=== PATIENT | female | born 1990 | race Caucasian/White ===

== ENCOUNTER → 2017-06-16 16:11 | Outpatient (CLI) | payer OTHER, SELFPAY ==
--- NOTE | 2017-06-16 16:20 | MRI_ITS ---
STUDY: MRI BRAIN WITH AND WITHOUT CONTRAST REASON FOR EXAM: Female, 26 years old. Headaches increasing in frequency TECHNIQUE: Standardized multiplanar fat and water weighted pulse sequences were obtained. 5ml ml of Gadavist contrast material was administered intravenously for the contrast portion of the examination. COMPARISON: None. FINDINGS: Normal size of the ventricles and extra-axial spaces for the patient's age. Normal white matter tracts of the supratentorial brain. Normal bilateral basal ganglia. Normal thalami. There is no extra-axial fluid accumulation. Normal flow voids within the major intracranial circulation suggesting patency by spin echo criteria. Normal venous enhancement. There is no enhancing intra-axial or extra-axial abnormality. Normal sella turcica, pituitary gland, infundibular stalk, optic chiasm and hypothalamus. Normal tectal plate and pineal gland. Normal midbrain, katarina and medulla. Normal cerebellum. Normal basal cisterns. Normal bilateral temporal bones. Normal bilateral internal auditory canals. No demonstrated orbital abnormality, within the constraints of a routine brain study. Mucous retention cyst or polyp in the right maxillary sinus.. Normal calvarium and skull base. Normal visualized soft tissue structures. Normal visualized upper cervical spine. MRI/Brain W/WO Contrast IMPRESSION: Normal unenhanced and enhanced MRI of the brain. Right maxillary sinusitis Electronically Signed: Naveen Valadez MD at 17:49 EST , Service support ,
== END ==
PROVIDERS: Family Provider Preventive Medicine Occupational Medicine; PCP Preventive Medicine Occupational Medicine; Visit Provider Preventive Medicine Occupational Medicine
DX: G43.109 Migraine with aura, not intractable, without status migrainosus (principal)
CPT/HCPCS: 70553; A9585

== ENCOUNTER → 2017-08-30 16:22 | Outpatient (CLI) | payer OTHER, SELFPAY ==
[2017-08-30 18:51] LABS: Chlamydia Trachomatis by PCR Negative (Negative); Neisserai gonorrhoeae by PCR Negative (Negative); Probe Check PASS; Sample Adequacy Control PASS; Specimen Processing Control PASS
== END ==
PROVIDERS: Visit Provider Obstetrics & Gynecology
DX: Z34.81 Encounter for supervision of other normal pregnancy, first trimester (principal); Z11.3 Encounter for screening for infections with a predominantly sexual mode of transmission
CPT/HCPCS: 87491; 87591

== ENCOUNTER → 2017-09-15 14:00 | Outpatient (CLI) | payer OTHER, SELFPAY ==
--- NOTE | 2017-09-15 14:00 | DT_ITS ---
This patient was seen during an EMR downtime September 13, 2017 - September 20, 2017. This patient may have a combination of paper and electronic documentation or all paper documentation. All documentation is viewable within the e-chart portion of [employer] for each patient visit.
[2017-09-19 10:01] LABS: Thyroid Stim Hormone (TSH) 1.19 uIU/mL (0.358-3.74)
[2017-09-19 10:21] LABS: Hemoglobin 13.3 g/dl (12.0-15.0); Mean Corp Hgb Conc 34.1 g/gl (32-36); Mean Corpuscular Hgb 30.5 pg (27.0-32.0); Mean Corpuscular Volume 89.4 fL (81-99); Mean Platelet Vol. 10.5 fl (6.2-12.0); Platelet Count 283 K/mm3 (150-450); RBC Distribution Width CV 12.4 % (11.6-14.6); RBC Distribution Width SD 40.4 fl (35.1-43.9); Red Blood Count 4.36 M/mm3 (4.2-5.4); Scan Indicated on CBC? Y/N NO; White Blood Count 8.8 K/mm3 (4.4-11.0)
[2017-09-19 13:45] LABS: Prenatal RPR NONREACTIVE (NONREACTIVE)
[2017-09-20 14:10] LABS: HIV - WCH Nonreactive (Nonreactive)
[2017-09-20 15:57] LABS: Rubella IgG 204.8 IU/mL
== END ==
PROVIDERS: Family Provider Preventive Medicine Occupational Medicine; PCP Preventive Medicine Occupational Medicine; Visit Provider Obstetrics & Gynecology
DX: Z34.81 Encounter for supervision of other normal pregnancy, first trimester (principal)
CPT/HCPCS: 36415; 84443; 85027; 86703; 86762; 86803; 87340

== ENCOUNTER → 2018-02-02 09:37 | Outpatient (CLI) | payer OTHER, SELFPAY ==
[2018-02-02 13:40] LABS: Hematocrit 31.6 % (37-47); Hemoglobin 10.2 g/dl (12.0-15.0); Mean Corp Hgb Conc 32.3 g/gl (32-36); Mean Corpuscular Hgb 29.5 pg (27.0-32.0); Mean Corpuscular Volume 91.3 fL (81-99); Mean Platelet Vol. 10.3 fl (6.2-12.0); Platelet Count 270 K/mm3 (150-450); RBC Distribution Width CV 13.1 % (11.6-14.6); Red Blood Count 3.46 M/mm3 (4.2-5.4); White Blood Count 8.4 K/mm3 (4.4-11.0)
[2018-02-02 13:41] LABS: Scan Indicated on CBC? Y/N NO
[2018-02-02 13:52] LABS: Glucose Challenge Gest 1H 50g 104 mg/dL (70-140)
== END ==
PROVIDERS: Visit Provider Obstetrics & Gynecology
DX: Z34.83 Encounter for supervision of other normal pregnancy, third trimester (principal)
CPT/HCPCS: 36415; 82950; 85027

== ENCOUNTER → 2018-03-28 16:56 | Outpatient (CLI) | payer OTHER, SELFPAY ==
--- OUTSIDE RECORDS SUMMARY | 2018-06-30 09:35 | XMS RPT_ITS ---
:1990 Author Organization [place] Support Name Relationship Address Phone [employer] Unavailable [address] + [address] [place] [address] [employer] Unavailable [address] + [address] [place] [address] JOHN EM Unavailable [address] + [place] [address] [employer] Unavailable [address] + [address] [place] [address] [employer] Unavailable [address] + [address] [place] [address] JOHN EM Unavailable [address] + [place] [address] [employer] Unavailable [address] + [address] [place] [address] KRISTYN SAUNDERS Unavailable [address] + [place] [address] JOHN EM Unavailable [address] + [place] [address] [employer] Unavailable [address] + [address] [place] [address] KRISTYN SAUNDERS Unavailable [address] + [place] [address] JOHN EM Unavailable [address] + [place] [address] [facility] Unavailable [address] + [address] [place] [address] MADDING, KRISTYN Unavailable [address] + [place] [address] NAUMOFF, EM Unavailable [address] + [place] [address] [facility] Unavailable [address] + [address] [place] [address] MADDING, KRISTYN Unavailable [address] + [place] [address] NAUMOFF, EM Unavailable [address] + [place] [address] [facility] Unavailable [address] + [address] [place] [address] MADDING, KRISTYN Unavailable [address] + [place] [address] NAUMOFF, EM Unavailable [address] + [place] [address] [facility] Unavailable [address] + [address] [place] [address] MADDING, KRISTYN Unavailable [address] + [place] [address] NAUMOFF, EM Unavailable [address] + [place] [address] NAUMOFF, TIM Unavailable Unavailable + NAUMOFF, TIM Unavailable Unavailable + NAUMOFF, JUDY Unavailable [address] + [place] [address] Care Team Providers Name Role Phone MAKI CHAMBERS Attending Unavailable MAKI CHAMBERS Primary Care Unavailable Jocelin Guevara Attending Unavailable Jocelin Guevara Attending Unavailable Jocelin Guevara Referring Unavailable Primay Care Physicia, No Primary Care Unavailable Maki Chambers Attending Unavailable Maki Chambers Referring Unavailable Maki Chambers Primary Care Unavailable Jocelin Guevara Attending Unavailable Sav Bassett Admitting Unavailable Sav Bassett Attending Unavailable Sav Bassett Referring Unavailable Primay Care Physicia, No Primary Care Unavailable Mihai Jeong Attending Unavailable Nichole Avalos Referring Unavailable Jocelin Guevara Attending Unavailable Jocelin Guevara Referring Unavailable Maki Chambers Primary Care Unavailable Jocelin Guevara Attending Unavailable PROBLEMS PROBLEMS DATE TYPE CONDITION / CODE ATTENDING STATUS SOURCE 03/28/2018 Unknown Z36.85 - Encounter Jocelin Guevara Active [facility] for [facility] screening for Hospital Streptococcus B / Repository Z36.85(ICD-10) 02/02/2018 Unknown Z34.83 - Encounter Jocelin Guevara Active [place] for supervision of Community other normal Hospital , third Repository trimester / Z34.83(ICD-10) 01/22/2018 Active Encounter for NA Active [facility] immunization / [facility] Z23(ICD-10) Repository 10/06/2017 Unknown Z34.81 - Encounter Jocelin Guevara Active [place] for supervision of Community other normal Hospital , first Repository trimester / Z34.81(ICD-10) 08/30/2017 Unknown Z11.3 - Encounter Jocelin Guevara Active [place] for screening for Community infections with a Hospital predominantly Repository sexual mode of transmission / Z11.3(ICD-10) 06/16/2017 Unknown G43.109 - Migraine Maki Chambers Active [facility] with aura, not Community intractable, Hospital without status Repository migrainosus / G43.109(ICD-10) PROCEDURES PROCEDURES No Procedure Records FoundRESULTS RESULTS DISCHARGE SUMMARY Observed: 04/30/2018 Status: F Source: [place] 10:19 AM [facility] REPOSITORY [facility] Medical Records Department [address] [place] [address] Discharge Summary 04/30/18 1017 MR#: [id number] Acct: [id number] Name: IKE KERN Rep #: [id number] : 1990 27 From: Nichole Mack MD PCP: Care Physician, No Primary Status: ADM IN Location: [place] [address]-1 Discharge Date and Diagnosis Date of Admission: 04/28/18 Date of Discharge: 04/30/18 Hospital Course and Treatment Operations: None Procedures: None Summary of Care Provided: The patient is a 27 year old F 2 para 1 admitted at 40 4/7wga in active labor. She progressed to have a vacuum assisted . Her course was unremarkable. She was discharged to home on day #2. - Physical Exam Vital Signs Temp Pulse Resp BP Pulse Ox 97.6 F L 83 18 93/51 L 96 04/30/18 08:45 04/30/18 08:45 04/30/18 08:45 04/30/18 08:45 04/30/18 01:05 Oxygen Delivery Method Room Air Weight: 71.668 kg Body Mass Index (BMI) 28.9 Intake and Output for Last 24 Hours Intake Total 4946 / 4946 Output Total 1800 / 1800 1949 / 1949 Balance 3146 / 3146 -1949 / Discharge Diet: No Restrictions Discharge Activity: Return to Normal Activity, May Drive, May Shower Return to work on:: 06/27/18 May shower in (days): 0 May resume sexual activity in: 6 weeks Call your doctor if your incision/area has: Sudden Increased Bleeding, Increased Pain/ Swelling, Increased Redness, Foul Smelling Discharge Call your doctor if you observe: Fever of 101 or Higher, Inability to urinate, Inability to have a bowel movement, Using more than one pad per hour, Shortness of breath, Chest pain, Calf discomfort, Uncontrolled pain Cleanse incision/area with: Soap AND Water Home Medications: Medications to take at Discharge Vits [Prenatabs FA ] 1 tablet PO DAILY 12/26/15 Ferrous Sulfate [Iron] 325 mg PO BID 04/12/18 Ibuprofen [Motrin] 600 mg PO Q6H PRN PRN #30 tab 04/28/18 Docusate Sodium [Colace] 100 mg PO BID PRN PRN #60 capsule 04/30/18 Following Prescrptions Were Given to Patient: Ibuprofen [Motrin] 600 mg PO Q6H PRN PRN #30 tab PRN Reason: pain or cramping Docusate Sodium [Colace] 100 mg PO BID PRN PRN #60 capsule PRN Reason: Constipation Primary Care Physician: Care Physician,No Primary [Primary Care Provider] - Please Follow Up With: Jocelin Guevara MD Medical Necessity - Tobacco Use Smoking Status: Never smoker Meaningful Use Info Meaningful Use Diagnoses (Choose all that apply): None applicable 04/30/18 1019 <Electronically signed by Nichole Avalos MD> Date Nichole Avalos MD Cosigner Signature (if applicable): Date CC: No Primary Care Physician; Nichole Avalos MD Signed CBC-COMPLETE BLOOD CNT Collected: 04/29/2018 Status: F Source: [place] NO DIFF 5:40 AM [facility] REPOSITORY Order Comment: Reason for Laboratory Test Day #1 TYPE CODE TESTS RESULT OUT OF RANGE REFERENCE UNITS LAB L100.1000 4.4-11.0 K/mm3 High WBC 15.2 LAB L100.1200 4.2-5.4 M/mm3 Low RBC 3.55 LAB L100.1300 12.0-15.0 g/dl Low HGB 10.4 LAB L100.1400 37-47 % Low HCT 31.5 LAB L100.1500 81-99 fL Normal MCV 88.7 LAB L100.1600 27.0-32.0 pg Normal MCH 29.3 LAB L100.1700 32-36 g/gl Normal MCHC 33.0 LAB L100.1810 11.6-14.6 % High RDW CV 16.5 LAB L100.1820 35.1-43.9 fl High RDW SD 51.9 LAB L100.1900 150-450 K/mm3 Normal PLT 194 LAB L100.2000 6.2-12.0 fl Normal MPV 10.5 Performed By: #### L100.0500 #### [facility] [address] [place], [address] DISCHARGE INSTRUCTION Observed: 04/28/2018 Status: F Source: [place] 12:50 PM [facility] REPOSITORY [facility] Medical Records Department [address] [facility] [place] [address] Instructions for Home/Discharge Instructions 04/28/18 1249 MR#: [id number] Acct: [id number] Name: IKE KERN Rep #: [id number] : 1990 27 From: Sav Bassett MD PCP: Care Physician, No Primary Status: ADM IN Discharge Diet: No Restrictions Discharge Activity: Return to Normal Activity, May Drive, May Shower Return to work on:: 06/27/18 May shower in (days): 0 May resume sexual activity in: 6 weeks Call your doctor if your incision/area has: Sudden Increased Bleeding, Increased Pain/ Swelling, Increased Redness, Foul Smelling Discharge Call your doctor if you observe: Fever of 101 or Higher, Inability to urinate, Inability to have a bowel movement, Using more than one pad per hour, Shortness of breath, Chest pain, Calf discomfort, Uncontrolled pain Cleanse incision/area with: Soap AND Water Additional Instructions: If you experience any of the following, contact your healthcare provider. * Bleeding that soaks a pad every hour for 2 hours * Fever 100.4 or higher * Unrelieved incision or abdominal pain * Swelling, redness, discharge or bleeding from your incision or episiotomy site * Your incision begins to separate * Problems urinating (including inability to urinate or burning while urinating). * Visual changes * Severe headache * Flu-like symptoms * Pain or redness in one of both of your breasts * Pain, warmth, tenderness or swelling in your legs, especially the calf area * Frequent nausea and vomiting * Symptoms of depression or anxiety If you experience any of the following, call 911 or go to the nearest Emergency Room. * Chest pain * Problems breathing * Seizure activity * Partial or complete paralysis of a body part, slurred speech, weakness or drooping of the face, or a sudden inability to walk or hold your balance Allergies/Adverse Reactions: Allergies No Known Allergies Allergy (Verified 04/28/18 07:06) Medications to take at Discharge Vits [Prenatabs FA ] 1 tablet PO DAILY 12/26/15 Ferrous Sulfate [Iron] 325 mg PO BID 04/12/18 Ibuprofen [Motrin] 600 mg PO Q6H PRN PRN #30 tab 04/28/18 The following prescriptions were given: Ibuprofen [Motrin] 600 mg PO Q6H PRN PRN #30 tab PRN Reason: pain or cramping Please Follow Up With: Jocelin Guevara MD When: 6 weeks Primary Care Physician: Care Physician,No Primary [Primary Care Provider] - Test Results: Test results from this visit will be discussed in further detail at your follow-up appointment, if applicable. Proposed Discharge Date: 04/30/18 04/28/18 1250 <Electronically signed by Sav Bassett MD> Date Sav Bassett MD CC: No Primary Care Physician Signed OPERATIVE REPORT Observed: 04/28/2018 Status: F Source: [place] 12:48 PM [facility] REPOSITORY [facility] Medical Records Department [address] [place] [address] Operative Report 04/28/18 1240 MR#: [id number] Acct: [id number] Name: IKE KERN Rep #: [id number] : 1990 27 From: Sav Bassett MD PCP: Care Physician, No Primary Status: ADM IN Location: [place] [address] Vaginal Delivery Maternal Presentation: Active Labor Presented at 40w4d ega with history of prior section in active labor. Amniotic Membrane Rupture Type: Artificial Rupture of Membrane time: 0730 Amniotic Fluid Description: Lightly stained meconium Final YELENA: 04/24/18 Final YELENA Source: US <20 weeks Gestational age: 40 Weeks and 4 Days doctor who attended delivery (if requested by OB): Dannielle Dukes Date of Procedure: 04/28/18 Pre-Operative Diagnosis: Repetitive late decelerations Post-Operative Diagnosis: same Surgery/ Procedure Performed: Vacuum Assisted Vaginal Delivery Anesthesiologist: Nilay Ang Type of Anesthesia: Epidural Description of Procedure: Ike presented at 7 cm dilated progressed over 2 hours to fully dilated then pushed for a little over an hour to bring the vertex to +2 station. Due to repetitive deep late decelerations decision was made to hasten delivery with the Kiwi vacuum device. The device was placed with care to avoid the fontanelles. Over two contractions and with good pushing efforts and gentle traction with the Kiwi the vertex was brought to the perineum. With one additional push the head was delivered. The mouth was suctioned with the bulb suction at the perineum. Thick meconium was present. There was a loose cord around the neck which was easily reduced. The baby was then delivered, the cord clamped and cut, and then handed to the waiting nursing staff for evaluation By Dr. Dukes. Cord blood gases were collected. The placenta was delivered spontaneously intact with a centrally located 3VC. The membranes were meconium stained. The uterus contracted well. Inspection revealed a second degree posterior vaginal/perineum tear which was repaired with 2-0 Vicryl suture. Presentation: Vertex Placental Delivery Description: Spontaneous Placenta Disposition: Sent to Pathology Percentage of Placenta Abruption: 0 Cord Vessel Description: 3 Vessels Nuchal Cord Compression: With compression Cord Entanglement: Around neck x 1, loose Estimated Blood Loss: 400cc A gender: Male (1 minute): 4 (5 minute): 8 Episiotomy Description: None Laceration: Midline, Perineal Extension/lac, Vaginal Extension/lac, 2nd degree Medications given after delivery: IV Pitocin Complications: None 04/28/18 1248 <Electronically signed by Sav Bassett MD> Date Sav Bassett MD CC: No Primary Care Physician; Sav Bassett MD Signed PATHOLOGY SPECIMEN OB Collected: 04/28/2018 Status: F Source: [place] 12:35 PM [facility] REPOSITORY Order Comment: Reason for Laboratory Test Placenta for lab studies Send Specimen For (Specify): Studies @ [facility] Lab:Routine Time of Procedure: 1215 Date of Procedure: 04/28/18 Reason specimen being sent to pathology (Hx/complications): meconium staining, heart rate decelerations Type of specimen: Placenta Type of procedure performed: Other TYPE CODE TESTS RESULT OUT OF RANGE REFERENCE UNITS LAB L350.1800 SEE Normal PATH. PATHOLOGY Spec. OB REPORT Result Comment: Specimen submitted to Anatomical Pathology Department for testing. Performed By: #### L350.1800 #### [facility] [address], [address] PLACENTA Observed: 04/28/2018 Status: F Source: [place] 12:15 PM [facility] REPOSITORY Patient: IKE KERN : 1990 (27/) Acct Num: [id number] Phys: Serjio MERCEDES,Sav Unit Num: [id number] Loc: [facility] [id number] Specimen: [id number] Received: 04/28/18 - 1325 Spec Type: PLACENTA TISSUES 1 TISSUES: Placenta, NOS GROSS DESCRIPTION SPECIMEN: PLACENTA / CLINICAL INFORMATION: A. Weight: 4.063 kg B. Gestational Age: 40 weeks C. Sex: Male PLACENTAL WEIGHT (POST FIXATION): 485 gm PLACENTAL DIMENSIONS: 19.5 x 18.5 x 3 cm PLACENTAL SHAPE: Usual ovoid PLACENTAL WEIGHT FOR GESTATIONAL AGE: Within 10-99th percentile MEMBRANES - Present A. Insertion: Marginal B. Site of rupture from edge: edge of placental disc C. Color of membrane: Contreras-yellow D. Abnormalities: None UMBILICAL CORD - Present A. Color: Contreras-sarmiento B. Insertion: slightly eccentric C. Length: 66 cm D. Diameter: 1.5 cm E. Number of vessels: Three F. Abnormalities: None PLACENTAL DISC - Present A. Color of surface: Contreras-sarmiento B. surface abnormalities: None C. Maternal cotyledons: Intact with minimal tears D. Attached retro placental clot: No clot E. Cut surface: Dark red and spongy F. Lesions: Single contreras-white lesion measuring 2 x 1.5 cm G. Separate clot: Absent SECTIONS SUBMITTED: 1. Membrane roll 2. Placental disc, and maternal surfaces (with lesion). 3. Placental disc, and maternal surfaces 4. Placental disc, and maternal surfaces 5. Additional membranes 6. Umbilical cord ( end inked) AM:laurel 04/29/18 TC:2 CPT: 54250 HEADER OPERATION: Vaginal delivery PRE-OP DIAGNOSIS: Meconium staining, heart rate decelerations TISSUE SUBMITTED: Placenta MICROSCOPIC DESCRIPTION Slides are reviewed. MICROSCOPIC DIAGNOSIS [place] placenta (485 gm): Umbilical cord - trivascular with early acute funisitis. Placental membranes - mild acute and chronic deciduitis and acute amnionitis. Placental disc - organizing intraparenchymal hemorrhage, mild Rosina-Vivek change and focal chorangiosis. AM:desiree 05/03/18 Signed Zaid Perez DO 05/03/18 <signature on file> Performed By: #### PPLAC #### [facility] [address] [facility] [place], [place], [address] CBC-COMPLETE BLOOD CNT Collected: 04/28/2018 Status: F Source: [place] NO DIFF 7:00 AM [facility] REPOSITORY TYPE CODE TESTS RESULT OUT OF RANGE REFERENCE UNITS LAB L100.1000 4.4-11.0 K/mm3 Normal WBC 10.2 LAB L100.1200 4.2-5.4 M/mm3 Low RBC 4.07 LAB L100.1300 12.0-15.0 g/dl Low HGB 11.6 LAB L100.1400 37-47 % Low HCT 36.1 LAB L100.1500 81-99 fL Normal MCV 88.7 LAB L100.1600 27.0-32.0 pg Normal MCH 28.5 LAB L100.1700 32-36 g/gl Normal MCHC 32.1 LAB L100.1810 11.6-14.6 % High RDW CV 16.2 LAB L100.1820 35.1-43.9 fl High RDW SD 51.4 LAB L100.1900 150-450 K/mm3 Normal PLT 233 LAB L100.2000 6.2-12.0 fl Normal MPV 10.5 Performed By: #### L100.0500 #### [facility] [address] [facility] [place], [place], [address] TYPE AND SCREEN Collected: 04/28/2018 Status: F Source: [place] 7:00 AM [facility] REPOSITORY Order Comment: Reason for Type AND Screen/Red Cells: ROUTINE TYPE CODE TESTS RESULT OUT OF RANGE REFERENCE UNITS LAB B10.0800 A Normal BLOOD TYPE GEL POSITIVE LAB B100.4000 Normal Antibody NEGATIVE Screen Performed By: #### B101.7450 #### [facility] [address] [facility] [address] [place], [place], [address] Observed: 03/28/2018 Status: F Source: [place] CULTURE, GROUP B 3:30 PM [facility] REPOSITORY Comments: VAGINAL/RECTAL MINDY Culture Group B Beta Streptococcus is not isolated. Performed By: #### M100.1800 #### [facility] [address] [place], [address] CBC-COMPLETE BLOOD CNT Collected: 02/02/2018 Status: F Source: [place] NO DIFF 8:42 AM [facility] REPOSITORY TYPE CODE TESTS RESULT OUT OF RANGE REFERENCE UNITS LAB L100.1000 4.4-11.0 K/mm3 Normal WBC 8.4 LAB L100.1200 4.2-5.4 M/mm3 Low RBC 3.46 LAB L100.1300 12.0-15.0 g/dl Low HGB 10.2 LAB L100.1400 37-47 % Low HCT 31.6 LAB L100.1500 81-99 fL Normal MCV 91.3 LAB L100.1600 27.0-32.0 pg Normal MCH 29.5 LAB L100.1700 32-36 g/gl Normal MCHC 32.3 LAB L100.1810 11.6-14.6 % Normal RDW CV 13.1 LAB L100.1820 35.1-43.9 fl Normal RDW SD 43.0 LAB L100.1900 150-450 K/mm3 Normal PLT 270 LAB L100.2000 6.2-12.0 fl Normal MPV 10.3 Performed By: #### L100.0500 #### [facility] [address] [facility] [place], [address] GLUCOSE CHALLENGE GEST Collected: 02/02/2018 Status: F Source: [place] 1H 50G 8:42 AM [facility] REPOSITORY TYPE CODE TESTS RESULT OUT OF RANGE REFERENCE UNITS LAB L501.0250 70-140 mg/dL Normal GLU GEST 104 50g 1H Performed By: #### L501.0250 #### [facility] [address] [place], [address] CNNURSE Observed: 01/22/2018 Status: COMPLETED Source: [place] 8:50 AM [facility] REPOSITORY Nurse Visit (CORWST) JOHNIKE ([id number]) 1990 F Date Time Provider Department 01/22/18 8:50 AM [facility] During your visit today, we recorded the following information about you: Dalila Parks Aden 01/22/2018 8:56 AM Signed 27 year old female here for INACTIVATED INFLUENZA VACCINE. 3839-4909 Season Patient is identified by name and date of : Yes [] CONTRAINDICATIONS color enhanced section Age less than 6 months? No Allergy to eggs, chicken, chicken feathers, or chicken dander? No Allergy to thimerosal (a preservative) or formaldehyde, gelatin? No History of severe reaction to any vaccine component or a previous dose of influenza vaccination? No History of Guillain-[place] Syndrome within 6 weeks after a previous influenza vaccine? No Patient is not moderately or severely ill? No Current temperature greater or equal to 100.4F? No History of Bone Marrow Transplant prior 6 months or solid organ transplant in the past 3 months ? No History of fainting after a prior injection or medical procedure? No- ? If patient has fainted in the past, the CDC recommends sitting or lying down for 15 minutes after the vaccination. [] VERIFICATION color enhanced section Was the answer Yes for any of the above contraindications? No contraindications present. Acceptable to proceed with vaccine. Patient/guardian agrees the above answers are true to the best of their knowledge? Yes Flu vaccine information sheet given? Yes See immunization activity in [facility] for details of immunizations adminstered today. Patient age: [age] year old For The 6916-1138 Flu Season 6-35 months old: Fluzone 0.25 ml - IM (Preservative Free) 3 years of age: Fluzone 0.5 ml - IM (Preservative Free) 3 years and older: Fluzone 0.5 ml- IM-(with Preservatives) 65+ years old: 2-49 years old Fluzone High-Dose 0.5 ml - IM (Preservative Free) FLUMIST- intranasal REMEMBER: If patient is less than 9 years of age and this is the first vaccine of Influenza to be received in any flu season, they should receive a second dose in one months time. Referring Provider: SELF [200] Allergies As of Date: 01/22/2018 (No Known Allergies) Date Reviewed: 09/30/2017 Reviewed by: Marysol Monge LPN - Fully Assessed Reason for Visit: Imm/Inj [58] Cmt: Flu Vaccine Primary Visit Diagnosis:Need for vaccination [Z23] Order(s):INFLUENZA VACCINE QUADRIVALENT AGE 3 YRS PLUS + IM [[id number]] Order #: [id number] Prescriptions as of 01/22/2018 Sig: FIORICET ORAL Take 1 tablet by mouth every * ONDANSETRON 4 MG DISINTEGRATI* Take 1 tablet by mouth every * BENZONATATE 100 MG CAPSULE Take 1 capsule by mouth three* DEXTROAMPHETAMINE-AMPHETAMINE* Take 30 mg by mouth once jaleel* MAXALT-ENGINEERING AIDE ORAL Take by mouth as needed. 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 5531-4883 Season Patient is identified by name and date of : Yes [] CONTRAINDICATIONS color enhanced section Age less than 6 months? No Allergy to eggs, chicken, chicken feathers, or chicken dander? No Allergy to thimerosal (a preservative) or formaldehyde, gelatin? No History of severe reaction to any vaccine component or a previous dose of influenza vaccination? No History of Guillain-[place] Syndrome within 6 weeks after a previous influenza vaccine? No Patient is not moderately or severely ill? No Current temperature greater or equal to 100.4F? No History of Bone Marrow Transplant prior 6 months or solid organ transplant in the past 3 months ? No History of fainting after a prior injection or medical procedure? No- ? If patient has fainted in the past, the CDC recommends sitting or lying down for 15 minutes after the vaccination. [] VERIFICATION color enhanced section Was the answer Yes for any of the above contraindications? No contraindications present. Acceptable to proceed with vaccine. Patient/guardian agrees the above answers are true to the best of their knowledge? Yes Flu vaccine information sheet given? Yes See immunization activity in [facility] for details of immunizations adminstered today. Patient age: [age] year old For The 7652-9044 Flu Season 6-35 months old: Fluzone 0.25 ml - IM (Preservative Free) 3 years of age: Fluzone 0.5 ml - IM (Preservative Free) 3 years and older: Fluzone 0.5 ml- IM-(with Preservatives) 65+ years old: 2-49 years old Fluzone High-Dose 0.5 ml - IM (Preservative Free) FLUMIST- intranasal REMEMBER: If patient is less than 9 years of age and this is the first vaccine of Influenza to be received in any flu season, they should receive a second dose in one months time. Observed: 09/30/2017 Status: F Source: [place] URINE CULTURE 7:37 PM [facility] REPOSITORY Sp. Request/Comment: - Specimen received in preservative Culture Result - <10,000 CFU/ml Normal urogenital manjeet Performed By: #### URCUL #### [facility] [address] [place] [id number] DOWNTIME REPORT Observed: 09/30/2017 Status: F Source: [place] 1:39 [facility] REPOSITORY [facility] Medical Records Department [address] [place] [address] Downtime Report MR#: [id number] Acct: [id number] Name: IKE KERN Rep #: [id number] : 1990 27 From: Gregor Rios PCP: Maki Chambers DO Status: REG CLI This patient was seen during an EMR downtime September 13, 2017 - September 20, 2017. This patient may have a combination of paper and electronic documentation or all paper documentation. All documentation is viewable within the e-chart portion of [employer] for each patient visit. PROGRESS Observed: 09/30/2017 Status: COMPLETED Source: [place] 7:07 AM [facility] REPOSITORY HNO ID: [id number] Author: Louann Pete) Nicki Service: (none) Author Type: Nurse Practitioner Type: Progress Notes Filed: 09/30/2017 7:29 AM Note Text: Subjective HPI Ike Kern is a 27 year old female who presents with headache and nausea for the past 3 days. She has taken fioricet and tylenol pm without relief. She also has some nausea. She rates the headache pain a 6/10. She has not vomited. She does have a history of migraines. Was treated with fioricet during first with good results. She did have preeclampsia with prior , was diagnosed near the end of her . Review of Systems Constitutional: Negative. Negative for fever. HENT: Negative for congestion and sore throat. Eyes: Negative for blurred vision, double vision and photophobia. Respiratory: Negative for cough. Cardiovascular: Negative. Gastrointestinal: Positive for nausea. Negative for vomiting. Skin: Negative. Neurological: Positive for headaches. Negative for dizziness. BP 118/62 Pulse 78 Temp 36.7 ?C (98 ?F) Resp 16 Wt 54.4 kg (120 lb) BMI 21.80 kg/m? BP checked while supine, 101/70 PAST MEDICAL HISTORY Diagnosis Date - Acne - ADHD (attention deficit hyperactivity disorder) - Endometriosis - Melasma - Migraine - Seasonal allergies PAST SURGICAL HISTORY Procedure Laterality Date - COLONOSCOPY internal hemorrhoid - L'SCOPE DX W/WO BRUSHINGS/WASHINGS 2008 Laparoscopy (endometriosis) ALLERGIES Patient has no known allergies. MEDICATIONS butalb/acetaminophen/caffeine (FIORICET ORAL) Take 1 tablet by mouth every 4 hours as needed. benzonatate (TESSALON PERLES) 100 mg capsule Take 1 capsule by mouth three times daily as needed for Cough. amphetamine-dextroamphetamine (ADDERALL XR) 30 mg 24 hr capsule Take 30 mg by mouth once daily. RIZATRIPTAN BENZOATE (MAXALT-ENGINEERING AIDE ORAL) Take by mouth as needed. FAMILY HISTORY Problem Relation Age of Onset - Stroke Maternal Grandmother - Stroke Paternal Grandmother - Heart Paternal Grandfather - Hypertension Maternal Grandmother - Hypertension Maternal Grandfather Social History Substance Use Topics - Smoking status: Never Smoker - Smokeless tobacco: Never Used - Alcohol use Yes Comment: very raraely Objective Physical Exam Constitutional: She is oriented to person, place, and time and well-developed, well-nourished, and in no distress. HENT: Head: Normocephalic. Right Ear: Tympanic membrane, external ear and ear canal normal. Left Ear: Tympanic membrane, external ear and ear canal normal. Nose: Nose normal. No rhinorrhea. Mouth/Throat: Uvula is midline, oropharynx is clear and moist and mucous membranes are normal. Mucous membranes are not pale and not dry. No posterior oropharyngeal edema or posterior oropharyngeal erythema. Eyes: Conjunctivae and EOM are normal. Pupils are equal, round, and reactive to light. Cardiovascular: Normal rate, regular rhythm and normal heart sounds. Pulmonary/Chest: Effort normal and breath sounds normal. No respiratory distress. She has no wheezes. Neurological: She is alert and oriented to person, place, and time. Skin: Skin is warm and dry. No rash noted. Nursing note and vitals reviewed. ASSESSMENT/PLAN: 1. Headache, unspecified headache type - ICD9: 784.0, ICD10: R51 (primary diagnosis) - UA DIP B/O- Negative for protein - may take tylenol PM and zofran, if relief is not obtained, recommend f/u with PCP or CNS. Unable to prescribe any controlled medication through [facility]. 2. Nausea - ICD9: 787.02, ICD10: R11.0 - ONDANSETRON 4 MG DISINTEGRATING TABLET 3. Urinary frequency - ICD9: 788.41, ICD10: R35.0 acute - UA positive for marnie esterase (trace) - Send urine for culture - UA DIP B/O - URINE CULTURE - Follow-up with your PCP in 3-5 days if symptoms have not improved or sooner if symptoms worsen - Discussed red flags and need for immediate medical evaluation if any occur. - Discussed supportive care treatment with fluids, rest and analgesia. - Discussed expected course of illness Louann Caceres APRN.CNP CNOV Observed: 09/30/2017 Status: COMPLETED Source: [place] 6:45 AM [facility] REPOSITORY Office Visit (WSTR) IKE KERN ([id number]) 1990 F Date Time Provider Department 09/30/17 6:45 AM LOUANN CACERES (LEXIE) WS During your visit today, we recorded the following information about you: Temperature Pulse Respiration Blood pressure 98 degrees 78/minute 16/minute 118/62 Weight 54.4 kg Louann Caceres APRN.CNP 09/30/2017 7:29 AM Signed Subjective HPI Ike Kern is a 27 year old female who presents with headache and nausea for the past 3 days. She has taken fioricet and tylenol pm without relief. She also has some nausea. She rates the headache pain a 6/10. She has not vomited. She does have a history of migraines. Was treated with fioricet during first with good results. She did have preeclampsia with prior , was diagnosed near the end of her . Review of Systems Constitutional: Negative. Negative for fever. HENT: Negative for congestion and sore throat. Eyes: Negative for blurred vision, double vision and photophobia. Respiratory: Negative for cough. Cardiovascular: Negative. Gastrointestinal: Positive for nausea. Negative for vomiting. Skin: Negative. Neurological: Positive for headaches. Negative for dizziness. BP 118/62 Pulse 78 Temp 36.7 ?C (98 ?F) Resp 16 Wt 54.4 kg (120 lb) BMI 21.80 kg/m? BP checked while supine, 101/70 PAST MEDICAL HISTORY Diagnosis Date - Acne - ADHD (attention deficit hyperactivity disorder) - Endometriosis - Melasma - Migraine - Seasonal allergies PAST SURGICAL HISTORY Procedure Laterality Date - COLONOSCOPY internal hemorrhoid - L'SCOPE DX W/WO BRUSHINGS/WASHINGS 2008 Laparoscopy (endometriosis) ALLERGIES Patient has no known allergies. MEDICATIONS butalb/acetaminophen/caffeine (FIORICET ORAL) Take 1 tablet by mouth every 4 hours as needed. benzonatate (TESSALON PERLES) 100 mg capsule Take 1 capsule by mouth three times daily as needed for Cough. amphetamine-dextroamphetamine (ADDERALL XR) 30 mg 24 hr capsule Take 30 mg by mouth once daily. RIZATRIPTAN BENZOATE (MAXALT-ENGINEERING AIDE ORAL) Take by mouth as needed. FAMILY HISTORY Problem Relation Age of Onset - Stroke Maternal Grandmother - Stroke Paternal Grandmother - Heart Paternal Grandfather - Hypertension Maternal Grandmother - Hypertension Maternal Grandfather Social History Substance Use Topics - Smoking status: Never Smoker - Smokeless tobacco: Never Used - Alcohol use Yes Comment: very raraely Objective Physical Exam Constitutional: She is oriented to person, place, and time and well-developed, well-nourished, and in no distress. HENT: Head: Normocephalic. Right Ear: Tympanic membrane, external ear and ear canal normal. Left Ear: Tympanic membrane, external ear and ear canal normal. Nose: Nose normal. No rhinorrhea. Mouth/Throat: Uvula is midline, oropharynx is clear and moist and mucous membranes are normal. Mucous membranes are not pale and not dry. No posterior oropharyngeal edema or posterior oropharyngeal erythema. Eyes: Conjunctivae and EOM are normal. Pupils are equal, round, and reactive to light. Cardiovascular: Normal rate, regular rhythm and normal heart sounds. Pulmonary/Chest: Effort normal and breath sounds normal. No respiratory distress. She has no wheezes. Neurological: She is alert and oriented to person, place, and time. Skin: Skin is warm and dry. No rash noted. Nursing note and vitals reviewed. ASSESSMENT/PLAN: 1. Headache, unspecified headache type - ICD9: 784.0, ICD10: R51 (primary diagnosis) - UA DIP B/O- Negative for protein - may take tylenol PM and zofran, if relief is not obtained, recommend f/u with PCP or CNS. Unable to prescribe any controlled medication through [facility]. 2. Nausea - ICD9: 787.02, ICD10: R11.0 - ONDANSETRON 4 MG DISINTEGRATING TABLET 3. Urinary frequency - ICD9: 788.41, ICD10: R35.0 acute - UA positive for marnie esterase (trace) - Send urine for culture - UA DIP B/O - URINE CULTURE - Follow-up with your PCP in 3-5 days if symptoms have not improved or sooner if symptoms worsen - Discussed red flags and need for immediate medical evaluation if any occur. - Discussed supportive care treatment with fluids, rest and analgesia. - Discussed expected course of illness VIKY Hanks APRN.CNP 09/30/2017 7:24 AM Signed HEADACHE GENERAL INFORMATION: Almost everyone has a headache occasionally. Most headaches are caused by tension, eye strain, or emotional upset. Headaches can also occur with many medical illnesses. They may be a side effect of some medications. A headache that occurs without other symptoms and only lasts a few hours probably isn't a cause for concern. INSTRUCTIONS: 1. You may use qzul-skv-wvenigp pain medication such as acetaminophen 2. Try some of the following measures to relieve your headache: Stretch and massage the muscles in your shoulders, neck, jaw, and scalp. Take a hot bath. Rest in a quiet, darkened room. Place a warm or cold wet cloth (whichever feels better to you) over the aching area. 3. Don't skip meals or delay meals for very long. Drink plenty of fluids. 4. Avoid alcoholic beverages and cigarette smoking. These often make a headache worse. 5. Get plenty of rest. A good night's sleep often is the best way to relieve a headache. CONTACT YOUR DOCTOR IF: 1. Your headache gets worse or lasts longer than 24 hours. 2. You develop a temperature over 100.5 F (38 C) 3. You need to take medicine to relieve headache pain more than 3 times a week. GO TO THE ED IF: 1. Your headache is different from any headache you ever had before, or is the worst headache of your life. 2. You feel confused or drowsy. 3. Your neck feels stiff. 4. You have a temperature of 102 F (39 C) or higher. 5. You have eye problems such as sensitivity to light or blurred or double vision. 6. You start to vomit. 7. You have difficulty walking, talking, or moving your arms or legs. Referring Provider: SELF [200] Allergies As of Date: 09/30/2017 (No Known Allergies) Date Reviewed: 09/30/2017 Reviewed by: Marysol Monge LPN - Fully Assessed Reason for Visit: Headache [52] Cmt: x 3 days Nausea [70] Cmt: x 3 days Primary Visit Diagnosis:Headache, unspecified headache type [R51] Other Visit Diagnoses:Nausea [R11.0] Urinary frequency [R35.0] Order(s):ondansetron orally disintegrating (ZOFRAN ODT) 4 mg disintegrating tabletTake 1 tablet by mouth every 6 hours as needed for Nausea/Vomiting.Disp: 12 tabletRfl: 0 UA DIP B/O [1342434] Order #: [id number] URINE CULTURE [SQURCUL] Order #: [id number] Prescriptions as of 09/30/2017 Sig: FIORICET ORAL Take 1 tablet by mouth every * ONDANSETRON 4 MG DISINTEGRATI* Take 1 tablet by mouth every * BENZONATATE 100 MG CAPSULE Take 1 capsule by mouth three* DEXTROAMPHETAMINE-AMPHETAMINE* Take 30 mg by mouth once jaleel* MAXALT-ENGINEERING AIDE ORAL Take by mouth as needed. Problem List As Of Date 09/30/2017 Noted Resolved Glucocorticoid deficiency (HCC) [E27.49] INVALID FOR* Other instructions from your clinician: HEADACHE GENERAL INFORMATION: Almost everyone has a headache occasionally. Most headaches are caused by tension, eye strain, or emotional upset. Headaches can also occur with many medical illnesses. They may be a side effect of some medications. A headache that occurs without other symptoms and only lasts a few hours probably isn't a cause for concern. INSTRUCTIONS: 1. You may use zbyq-try-lperrij pain medication such as acetaminophen 2. Try some of the following measures to relieve your headache: Stretch and massage the muscles in your shoulders, neck, jaw, and scalp. Take a hot bath. Rest in a quiet, darkened room. Place a warm or cold wet cloth (whichever feels better to you) over the aching area. 3. Don't skip meals or delay meals for very long. Drink plenty of fluids. 4. Avoid alcoholic beverages and cigarette smoking. These often make a headache worse. 5. Get plenty of rest. A good night's sleep often is the best way to relieve a headache. CONTACT YOUR DOCTOR IF: 1. Your headache gets worse or lasts longer than 24 hours. 2. You develop a temperature over 100.5 F (38 C) 3. You need to take medicine to relieve headache pain more than 3 times a week. GO TO THE ED IF: 1. Your headache is different from any headache you ever had before, or is the worst headache of your life. 2. You feel confused or drowsy. 3. Your neck feels stiff. 4. You have a temperature of 102 F (39 C) or higher. 5. You have eye problems such as sensitivity to light or blurred or double vision. 6. You start to vomit. 7. You have difficulty walking, talking, or moving your arms or legs. Prescriptions ordered this encounter Disp Refills Start End ONDANSETRON 4 MG DISINTEGRATING TABL* 12 t* 0 09/30/2017 Route: ORAL Sig: Take 1 tablet by mouth every 6 hours as needed for Nausea/Vomiting. Encounter Status:Closed by LOUANN CACERES on 09/30/17 HIV - [facility] Collected: 09/15/2017 Status: F Source: [place] 11:20 [facility] REPOSITORY Order Comment: RESULT(S) PREVIOUSLY REPORTED ON MANUAL REQUISITION DURING DOWNTIME. TYPE CODE TESTS RESULT OUT OF REFERENCE UNITS RANGE LAB L3890.6005 Nonreactive Nonreactive Normal HIV - [facility] Performed By: #### L3890.6005, L509.4000 #### [facility] [address] [place], [address] RUBELLA IGG Collected: 09/15/2017 Status: F Source: [place] 11:20 AM [facility] REPOSITORY Order Comment: RESULT(S) PREVIOUSLY REPORTED ON MANUAL REQUISITION DURING DOWNTIME. TYPE CODE TESTS RESULT OUT OF RANGE REFERENCE UNITS LAB L509.4000 IU/mL Normal Rubella IgG 204.8 Result Comment: Antibody results Interpretation of Immune Status < 5 IU/ml Presumed Non-immune 5 - < 10 IU/ml Equivocal > or = 10 IU/ml Presumed Immune Performed By: #### L3890.6005, L509.4000 #### [facility] [address] [place], [place], [address] T AND S-NO Collected: 09/15/2017 Status: F Source: [place] CHARGE W/PNP 11:20 [facility] REPOSITORY Order Comment: RESULT(S) PREVIOUSLY REPORTED ON MANUAL REQUISITION DURING DOWNTIME. Reason for Type AND Screen/Red Cells: Surgery? N TYPE CODE TESTS RESULT OUT OF RANGE REFERENCE UNITS LAB B10.0800 A Normal BLOOD POSITIVE TYPE GEL LAB B100.4050 Normal Ab SCREEN NEGATIVE GEL Performed By: #### B100.7550 #### [facility] [address] [place], [place], [id number] CBC-COMPLETE BLOOD CNT Collected: 09/15/2017 Status: F Source: [place] NO DIFF 11:20 [facility] REPOSITORY Order Comment: RESULT(S) PREVIOUSLY REPORTED ON MANUAL REQUISITION DURING DOWNTIME. TYPE CODE TESTS RESULT OUT OF RANGE REFERENCE UNITS LAB L100.1000 4.4-11.0 K/mm3 Normal WBC 8.8 LAB L100.1200 4.2-5.4 M/mm3 Normal RBC 4.36 LAB L100.1300 12.0-15.0 g/dl Normal HGB 13.3 LAB L100.1400 37-47 % Normal HCT 39.0 LAB L100.1500 81-99 fL Normal MCV 89.4 LAB L100.1600 27.0-32.0 pg Normal MCH 30.5 LAB L100.1700 32-36 g/gl Normal MCHC 34.1 LAB L100.1810 11.6-14.6 % Normal RDW CV 12.4 LAB L100.1820 35.1-43.9 fl Normal RDW SD 40.4 LAB L100.1900 150-450 K/mm3 Normal PLT 283 LAB L100.2000 6.2-12.0 fl Normal MPV 10.5 Performed By: #### L100.0500 #### [facility] [address] [place], [address] THYROID STIM HORMONE Collected: 09/15/2017 Status: F Source: [place] (TSH) 11:20 AM [facility] REPOSITORY Order Comment: RESULT(S) PREVIOUSLY REPORTED ON MANUAL REQUISITION DURING DOWNTIME. TYPE CODE TESTS RESULT OUT OF RANGE REFERENCE UNITS LAB L501.9520 0.358-3.74 uIU/mL Normal TSH 1.19 Performed By: #### L501.9520 #### [facility] [address] [place], [address] RPR Collected: 09/15/2017 Status: F Source: [place] 11:20 AM [facility] REPOSITORY TYPE CODE TESTS RESULT OUT OF REFERENCE UNITS RANGE LAB L700.5100 NONREACTIVE Normal RPR NONREACTIVE Performed By: #### L700.5100 #### [facility] [address] [place], [address] HEPATITIS B SURFACE Collected: 09/15/2017 Status: F Source: [place] AG 11:20 AM [facility] REPOSITORY TYPE CODE TESTS RESULT OUT OF RANGE REFERENCE UNITS LAB L3100.0400 Normal HB SURF AG Result Comment: TEST RESULT LIMITS HBsAg Screen Negative Negative TESTING PERFORMED AT [facility]. ORIGINAL REPORT ON FILE IN LAB CONTAINS ADDITIONAL TEST SITE INFORMATION. Performed By: #### L3100.0390, L3100.0625 #### [facility] (refer to report for specific site) refer to report for address and phone number HEPATITIS C ANTIBODIES Collected: 09/15/2017 Status: F Source: [place] 11:20 AM [facility] REPOSITORY TYPE CODE TESTS RESULT OUT OF RANGE REFERENCE UNITS LAB L3100.0650 Normal HEP C AB Result Comment: TEST RESULT LIMITS HCV Antibody Hep C Virus Ab 0.1 s/co ratio 0.0 - 0.9 Negative: < 0.8 Indeterminate: 0.8 - 0.9 Positive: > 0.9 The CDC recommends that a positive HCV antibody result be followed up with a HCV Nucleic Acid Amplification test (671121). TESTING PERFORMED AT [facility]. ORIGINAL REPORT ON FILE IN LAB CONTAINS ADDITIONAL TEST SITE INFORMATION. Performed By: #### L3100.0390, L3100.0625 #### [facility] (refer to report for specific site) refer to report for address and phone number CT/NG [facility] BY PCR Collected: 08/30/2017 Status: F Source: [place] 3:45 PM [facility] REPOSITORY TYPE CODE TESTS RESULT OUT OF RANGE REFERENCE UNITS LAB L8200.2100 Negative Normal Chlam Negative Trac PCR LAB L8200.2200 Negative Normal NG by Negative PCR Performed By: #### L8200.2000 #### [facility] [address] [place], [address] BRAIN W/WO CONTRAST Observed: 06/16/2017 Status: F Source: [place] 4:25 [facility] REPOSITORY [facility] Imaging Services [address] [place] [address] Brain W/WO Contrast MR#: [id number] Acct: [id number] Name: IKE KERN Rep #: [id number] : 1990 F 26 From: Naveen Valadez MD PCP: Maik Chambers DO Status: REG CLI Study: Brain W/WO Contrast Date of Exam: 06/16/17 Exam# [id number] Ordering Dr: Maki Chambers DO STUDY: MRI BRAIN WITH AND WITHOUT CONTRAST REASON FOR EXAM: Female, 26 years old. Headaches increasing in frequency TECHNIQUE: Standardized multiplanar fat and water weighted pulse sequences were obtained. 5ml ml of Gadavist contrast material was administered intravenously for the contrast portion of the examination. COMPARISON: None. FINDINGS: Normal size of the ventricles and extra-axial spaces for the patient's age. Normal white matter tracts of the supratentorial brain. Normal bilateral basal ganglia. Normal thalami. There is no extra-axial fluid accumulation. Normal flow voids within the major intracranial circulation suggesting patency by spin echo criteria. Normal venous enhancement. There is no enhancing intra-axial or extra-axial abnormality. Normal sella turcica, pituitary gland, infundibular stalk, optic chiasm and hypothalamus. Normal tectal plate and pineal gland. Normal midbrain, katarina and medulla. Normal cerebellum. Normal basal cisterns. Normal bilateral temporal bones. Normal bilateral internal auditory canals. No demonstrated orbital abnormality, within the constraints of a routine brain study. Mucous retention cyst or polyp in the right maxillary sinus.. Normal calvarium and skull base. Normal visualized soft tissue structures. Normal visualized upper cervical spine. MRI/Brain W/WO Contrast IMPRESSION: Normal unenhanced and enhanced MRI of the brain. Right maxillary sinusitis Electronically Signed: Naveen Valadez MD at 17:49 EST , Service support , CC: Maki Chambers DO Direct Care Worker: Signed ALLERGIES ALLERGIES DATE TYPE / CODE NAME / CODE REACTION SEVERITY SOURCE 05/02/2018 Drug No Known Unknown [facility] Allergy/416 Allergies/J48822 [facility] 490250(SNOM 0388(RXNORM) Repository ED CT) Drug NO KNOWN [facility] Class/35356 ALLERGIES [facility] 1003(SNOMED Repository CT) ENCOUNTERS ENCOUNTERS ADMIT/DISCHARGE ACCOUNT NUMBER ADMITTING ENCOUNTER LOCATION SOURCE CLASS 05/02/2018/05/02/19 [id number] Ambulatory BMSBuilding: [facility] 19 BMS.A Counts Include 234 Beds At [facility] Repository 04/28/2018/04/30/19 [id number] [facility] Inpatient [facility] 19 Encounter [facility] ding:WPRoom: Repository CA173Yeb: 1 04/12/2018/04/12/19 [id number] Ambulatory [place] [address] [place] [address] ding:WPOUTRo Repository om: [id number] 03/28/2018 [id number] Ambulatory [facility] ding:LABSPEC Repository 02/02/2018 [id number] Ambulatory [facility] ding:WOBLAB Repository 01/22/2018/01/25/20 [id number] Ambulatory [address] Repository 09/30/2017/10/02/19 [id number] Ambulatory [address] Repository 09/15/2017 [id number] Ambulatory [facility] ding:LABSPEC Repository 08/30/2017 [id number] Ambulatory [facility] ding:LABSPEC Repository 06/16/2017 [id number] Ambulatory [facility] ding:MRI Repository 05/28/2017 [id number] [facility] PAYERS PAYERS ENCOUNTER GUARANTOR PAYER SUBSCRIBER SOURCE 05/02/2018 IKE A Primary IKE A Melina [id number] PEREZ Insurance:MEDICAL NAUMOFFDOB: [facility] [id number] Number: Repository [address]Lnz: [phone] [id number] [phone] () Date:7511-77-44EG [address] [place] [id number]: 05/02/2018 Secondary NOT GIVENUNK [place] Insurance:SELF PAY [facility] Number: Effective Repository Date:2018-05-02 04/28/2018 IKE A Primary IKE A Melina [id number] PEREZ Insurance:MEDICAL NAUMOFFDOB: [facility] [id number] Number: Repository [address]Oqu: 330 [id number] [phone] (HP) Date:5157-11-33CU [address] [place] [phone]: 04/28/2018 Secondary NOT GIVENUNK [place] Insurance:SELF PAY [facility] Number: Effective Repository Date:2018-04-28 04/12/2018 IKE A Primary IKE Summers [id number] PEREZ Insurance:MEDICAL NAUMOFFDOB: [facility] [id number] Number: Repository [address]Yqc: 330 [id number] [phone] (HP) Date:6045-90-47JB [address] [place] [phone]: 04/12/2018 Secondary NOT GIVENUNK [place] Insurance:SELF PAY [facility] Number: Effective Repository Date:2018-04-12 03/28/2018 Ike Primary Ike Summers [id number] [place] Insurance:MEDICAL NaumoffDOB: [facility] [id number] Number: Repository [id number]: 330 [id number] [phone] (HP) Date:1451-40-05DI [address] [address]RO: 03/28/2018 Secondary NOT GIVENUNK [place] Insurance:SELF PAY [facility] Number: Effective Repository Date:2018-03-28 02/02/2018 Ike Primary Ike Summers [id number] [place] Insurance:MEDICAL NaumoffDOB: [facility] [id number] Number: Repository [address]Kth: 330 [id number] [phone] (HP) Date:2666-16-46VH [address] [address]NW: 02/02/2018 Secondary NOT GIVENUNK [place] Insurance:SELF PAY [facility] Number: Effective Repository Date:2018-02-02 09/15/2017 Ike Primary Ike [place] [id number] [place] Insurance:MEDICAL NaumoffDOB: [facility] [id number] Number: Repository [id number]: 330 [id number] [phone] (HP) Date:0286-99-22WA [address] [id number]: 09/15/2017 Secondary NOT GIVENUNK [place] Insurance:SELF PAY [facility] Number: Effective Repository Date:2017-09-15 08/30/2017 [facility] Ike Melina [id number] Perez Insurance:MEDICAL NaumoffDOB: [facility] [id number]: Repository [id number]: [phone] [id number] [phone] (HP) Date:[id number] [address] [id number]: 08/30/2017 Secondary NOT GIVENUNK [place] Insurance:SELF PAY [facility] Number: Effective Repository Date:2017-08-30 06/16/2017 [facility] Ike Summers [id number] [place] Insurance:MEDICAL NaumoffDOB: [facility] [id number] Number: Repository [id number]: [phone] [id number] [phone] (HP) Date:0628-16-03IG [address] [id number]: 06/16/2017 Secondary NOT GIVENUNK Melina Insurance:SELF PAY [facility] Number: Effective Repository Date:2017-05-31 05/28/2017 [facility] NAUMOFFDOB: Insurance:MEDICAL NAUMOFFDOB: [facility] [place] [id number] [address] [id number] Repository [facility] Number: [address] [place], [place] [id number] [place], [place] [address] Date:2017-05-25 [id number]: ([email or web address]) [email or web address] [id number] [phone] : Name:BENOIT JORDAN (HP)Tel: ([phone] (ZL)Tel: [phone], [place] [address] (WP) [phone] (JR) [id number]:
== END ==
PROVIDERS: Visit Provider Obstetrics & Gynecology
DX: Z36.85 Encounter for antenatal screening for Streptococcus B (principal)
CPT/HCPCS: 87081

== ENCOUNTER 2018-04-12 04:50 | Outpatient (CLI) | payer OTHER, SELFPAY ==
[2018-04-12 05:55] VITALS: BMI 28.1
[2018-04-12 07:40] VITALS: RESP 18
--- NOTE | 2018-04-14 08:01 | OB.TRI.NOTE ---
History of Present Illness Date of Service: 04/12/18 Was patient seen by the physician?: No Reason For Visit: R/O LABOR Date of Service: 04/12/18 Final YELENA: 04/24/18 Final YELENA Source: US <20 weeks Gestational age: 38 wk, 2 days History of Present Illness: 27 yo female with h/o prior C/S for CPD. presents with CC of UCs. Planning . Observed for several hours. UCs less frequent and no change of cervix from office exam. Sent home Allergies No Known Allergies Allergy (Verified 04/12/18 05:56) Physical Exam Vitals: Vital Signs Resp 18 04/12/18 07:40 Cervix Dilation (cm): 3 Station: -3 NST - FHR Rate Baby A Baseline: 130-140s with avg variability. Accels to 170s Variability:: Moderate Accelerations:: 15 x 15 Decelerations:: None NST Reactive:: Yes, Appropriate for gestational age FHR Category:: Category I Uterine Activity:: Irregular UCs. q 6-7+ Impression/Plan 38 2/7 wk False labor reactive NST Home RTO as planned for next PNV, return to labor and delivery if inc s/sx of labor
== END 2018-04-12 07:40 | disposition home or self-care (01) ==
LOC: WPOUT 05:29 → WP 05:31
PROVIDERS: Referring Provider Obstetrics & Gynecology; Visit Provider Obstetrics & Gynecology
DX: O47.1 False labor at or after 37 completed weeks of gestation (principal); Z3A.38 38 weeks gestation of pregnancy; O34.219 Maternal care for unspecified type scar from previous cesarean delivery
CPT/HCPCS: 59025; 59050; 99218; G0378

== ENCOUNTER 2018-04-28 06:45 | Inpatient (IN) | payer OTHER, SELFPAY ==
[2018-04-28] MEDS: Lactated Ringers 1,000 ML 50 ML IV ×3 (07:00→10:22)
[2018-04-28 07:09] VITALS: BMI 28.9
[2018-04-28 07:28] LABS: Hematocrit 36.1 % (37-47); Hemoglobin 11.6 g/dl (12.0-15.0); Mean Corp Hgb Conc 32.1 g/gl (32-36); Mean Corpuscular Hgb 28.5 pg (27.0-32.0); Mean Corpuscular Volume 88.7 fL (81-99); Mean Platelet Vol. 10.5 fl (6.2-12.0); Platelet Count 233 K/mm3 (150-450); RBC Distribution Width CV 16.2 % (11.6-14.6); RBC Distribution Width SD 51.4 fl (35.1-43.9); Red Blood Count 4.07 M/mm3 (4.2-5.4); White Blood Count 10.2 K/mm3 (4.4-11.0)
[2018-04-28 07:30] LABS: Scan Indicated on CBC? Y/N NO
[2018-04-28] MEDS: fentaNYL-bupivacaine (epidural) 100 ML BAG EPIDURAL (08:04)
--- NOTE | 2018-04-28 11:46 | PCM.PN.OB ---
Subjective: Appears comfortable with contractions. Objective: AFeb VSS FHR tracing Cat 2. - Physical Exam General: Alert, Oriented x3, Cooperative, No apparent distress Abdomen: Soft, Non Tender, Non-Distended, Gravid, Appropriate for Gestational Age Comment: CE FD +2 station Weight: 158 lb Body Mass Index (BMI) 28.9 Laboratory Tests Past 24 Hrs 04/28/18 04/28/18 07:00 07:00 WBC 10.2 RBC 4.07 L Hgb 11.6 L Hct 36.1 L MCV 88.7 MCH 28.5 MCHC 32.1 RDW 16.2 H RDW Differential 51.4 H Plt Count 233 MPV 10.5 Blood Type A POSITIVE Antibody Screen NEGATIVE Medical Necessity - Tobacco Use Smoking Status: Never smoker Assessment/Plan Pushing now for about an hour. Has made progress. Fetus with repetitive decelerations after contractions. Good variability betweeen contractions. Will allow to push for a little longer then will assist delivery with Kiwi device to hasten delivery.
[2018-04-28] MEDS: Oxytocin 30 units/NS 500 ml 30 UNITS/500 ML IV.SOLN 334 UNITS IV (12:14)
--- NOTE | 2018-04-28 12:15 | PLAC_PTH ---
PATIENT: IKE LOPEZ LOC: [facility] U#:[id number] AGE/SX: 27/F ROOM: WP004 RE04/28/[address]: Dr. Sav Bassett MD : 1990 BED: 1 DIS: 04/30/2018 SPEC #: [id number] RECD: 04/28/18 13:26 STATUS: ELBERT REKaley #: [id number] STEVO: 04/28/18 12:[address]: Sav Bassett DEPT: SURGICAL PATHOLOGY RECD BY: Michael Maldonado ENTERED: 04/28/18 13:34 SP TYPE: PLACENTA OTHR DR: No Primary Care Phys Tissues: Placenta, NOS Procedures: Surgery Specimen Level V HEADER OPERATION: Vaginal delivery PRE-OP DIAGNOSIS: Meconium staining, heart rate decelerations TISSUE SUBMITTED: Placenta MICROSCOPIC DIAGNOSIS Villalpando placenta (485 gm): Umbilical cord - trivascular with early acute funisitis. Placental membranes - mild acute and chronic deciduitis and acute amnionitis. Placental disc - organizing intraparenchymal hemorrhage, mild Rosina-Vivek change and focal chorangiosis. AM:desiree 05/03/18 MICROSCOPIC DESCRIPTION Slides are reviewed. GROSS DESCRIPTION SPECIMEN: PLACENTA / CLINICAL INFORMATION: A. Weight: 4.063 kg B. Gestational Age: 40 weeks C. Sex: Male PLACENTAL WEIGHT (POST FIXATION): 485 gm PLACENTAL DIMENSIONS: 19.5 x 18.5 x 3 cm PLACENTAL SHAPE: Usual ovoid PLACENTAL WEIGHT FOR GESTATIONAL AGE: Within 10-99th percentile MEMBRANES - Present A. Insertion: Marginal B. Site of rupture from edge: edge of placental disc C. Color of membrane: Contreras-yellow D. Abnormalities: None UMBILICAL CORD - Present A. Color: Contreras-sarmiento B. Insertion: slightly eccentric C. Length: 66 cm D. Diameter: 1.5 cm E. Number of vessels: Three F. Abnormalities: None PLACENTAL DISC - Present A. Color of surface: Contreras-sarmiento B. surface abnormalities: None C. Maternal cotyledons: Intact with minimal tears D. Attached retro placental clot: No clot E. Cut surface: Dark red and spongy F. Lesions: Single contreras-white lesion measuring 2 x 1.5 cm G. Separate clot: Absent SECTIONS SUBMITTED: 1. Membrane roll 2. Placental disc, and maternal surfaces (with lesion). 3. Placental disc, and maternal surfaces 4. Placental disc, and maternal surfaces 5. Additional membranes 6. Umbilical cord ( end inked) AM:sp 04/29/18 TC:2 CPT: 69876
--- NOTE | 2018-04-28 12:40 | PCM.OB.VAG ---
Vaginal Delivery Maternal Presentation: Active Labor Presented at 40w4d ega with history of prior section in active labor. Amniotic Membrane Rupture Type: Artificial Rupture of Membrane time: 0730 Amniotic Fluid Description: Lightly stained meconium Final YELENA: 04/24/18 Final YELENA Source: US <20 weeks Gestational age: 40 Weeks and 4 Days [place] doctor who attended delivery (if requested by OB): Dannielle Dukes Date of Procedure: 04/28/18 Pre-Operative Diagnosis: Repetitive late decelerations Post-Operative Diagnosis: same Surgery/ Procedure Performed: Vacuum Assisted Vaginal Delivery Anesthesiologist: Nilay Ang Type of Anesthesia: Epidural Description of Procedure: Sailaja presented at 7 cm dilated progressed over 2 hours to fully dilated then pushed for a little over an hour to bring the vertex to +2 station. Due to repetitive deep late decelerations decision was made to hasten delivery with the Kiwi vacuum device. The device was placed with care to avoid the fontanelles. Over two contractions and with good pushing efforts and gentle traction with the Kiwi the vertex was brought to the perineum. With one additional push the head was delivered. The mouth was suctioned with the bulb suction at the perineum. Thick meconium was present. There was a loose cord around the neck which was easily reduced. The baby was then delivered, the cord clamped and cut, and then handed to the waiting nursing staff for evaluation By Dr. Dukes. Cord blood gases were collected. The placenta was delivered spontaneously intact with a centrally located 3VC. The membranes were meconium stained. The uterus contracted well. Inspection revealed a second degree posterior vaginal/perineum tear which was repaired with 2-0 Vicryl suture. Presentation: Vertex Placental Delivery Description: Spontaneous Placenta Disposition: Sent to Pathology Percentage of Placenta Abruption: 0 Cord Vessel Description: 3 Vessels Nuchal Cord Compression: With compression Cord Entanglement: Around neck x 1, loose Estimated Blood Loss: 400cc A gender: Male (1 minute): 4 (5 minute): 8 Episiotomy Description: None Laceration: Midline, Perineal Extension/lac, Vaginal Extension/lac, 2nd degree Medications given after delivery: IV Pitocin Complications: None
[2018-04-28] MEDS: Oxytocin 30 units/NS 500 ml 30 UNITS/500 ML IV.SOLN 167 UNITS IV (12:44)
--- NOTE | 2018-04-28 12:50 | DCINST_ITS ---
Discharge Diet: No Restrictions Discharge Activity: Return to Normal Activity, May Drive, May Shower Return to work on:: 06/27/18 May shower in (days): 0 May resume sexual activity in: 6 weeks Call your doctor if your incision/area has: Sudden Increased Bleeding, Increased Pain/ Swelling, Increased Redness, Foul Smelling Discharge Call your doctor if you observe: Fever of 101 or Higher, Inability to urinate, Inability to have a bowel movement, Using more than one pad per hour, Shortness of breath, Chest pain, Calf discomfort, Uncontrolled pain Cleanse incision/area with: Soap & Water Additional Instructions: If you experience any of the following, contact your healthcare provider. * Bleeding that soaks a pad every hour for 2 hours * Fever 100.4 or higher * Unrelieved incision or abdominal pain * Swelling, redness, discharge or bleeding from your incision or episiotomy site * Your incision begins to separate * Problems urinating (including inability to urinate or burning while urinating). * Visual changes * Severe headache * Flu-like symptoms * Pain or redness in one of both of your breasts * Pain, warmth, tenderness or swelling in your legs, especially the calf area * Frequent nausea and vomiting * Symptoms of depression or anxiety If you experience any of the following, call 911 or go to the nearest Emergency Room. * Chest pain * Problems breathing * Seizure activity * Partial or complete paralysis of a body part, slurred speech, weakness or drooping of the face, or a sudden inability to walk or hold your balance Allergies/Adverse Reactions: Allergies No Known Allergies Allergy (Verified 04/28/18 07:06) Medications to take at Discharge Vits [Prenatabs FA ] 1 tablet PO DAILY 12/26/15 Ferrous Sulfate [Iron] 325 mg PO BID 04/12/18 Ibuprofen [Motrin] 600 mg PO Q6H PRN PRN #30 tab 04/28/18 The following prescriptions were given: Ibuprofen [Motrin] 600 mg PO Q6H PRN PRN #30 tab PRN Reason: pain or cramping Please Follow Up With: Jocelin Guevara MD When: 6 weeks Primary Care Physician: Care Physician,No Primary [Primary Care Provider] - Test Results: Test results from this visit will be discussed in further detail at your follow- up appointment, if applicable. Proposed Discharge Date: 04/30/18
[2018-04-28] MEDS: Methylergonovine 0.2 MG/ML Ampul IM (13:20)
[2018-04-28] MEDS: Ibuprofen 600 MG Tablet PO ×2 (13:26→20:02)
[2018-04-28] MEDS: Acetaminophen 500 MG Tablet 1000 MG PO (15:19)
[2018-04-28 17:15] VITALS: TEMP 37
--- NOTE | 2018-04-28 17:24 | NURSING ---
1700 pericare done pad changed fresh pack on with tucks; perineum remains swollen hernandez remains in for now; pt oob up to chair pt felt dizzy at first when up then resolved;
--- NOTE | 2018-04-28 17:25 | NURSING ---
1600 dr ware made aware of IM methergine given for moderatly heavy bleeding- order received for a round of PO methergine every 4 hours for 6 doses. notified of Temp in recovery and wants Tylenol given;
[2018-04-28] MEDS: Ferrous Sulfate 325 MG Tablet PO (17:27)
[2018-04-28 19:50] VITALS: BP 96/56; PULSE 91; RESP 16; TEMP 37; O2SAT 98
[2018-04-28] MEDS: Hydrocortisone 2.5% Crm 1 APPLIC TOPICAL (20:03)
[2018-04-28] MEDS: oxyCODONE 5 MG Tablet PO (22:00)
[2018-04-29] VITALS: BP 91/60; PULSE 93; RESP 18; TEMP 36.6; O2SAT 99
[2018-04-29] MEDS: Acetaminophen 500 MG Tablet 1000 MG PO ×2 (01:47→10:33)
[2018-04-29] MEDS: oxyCODONE 5 MG Tablet PO ×5 (03:40→20:36)
[2018-04-29 03:52] VITALS: BP 96/56; PULSE 93; RESP 18; TEMP 36.4; O2SAT 98
[2018-04-29] MEDS: Ibuprofen 600 MG Tablet PO ×3 (06:02→18:24)
[2018-04-29 06:14] LABS: Hematocrit 31.5 % (37-47); Hemoglobin 10.4 g/dl (12.0-15.0); Mean Corpuscular Hgb 29.3 pg (27.0-32.0); Mean Corpuscular Volume 88.7 fL (81-99); Mean Platelet Vol. 10.5 fl (6.2-12.0); Platelet Count 194 K/mm3 (150-450); RBC Distribution Width CV 16.5 % (11.6-14.6); RBC Distribution Width SD 51.9 fl (35.1-43.9); Red Blood Count 3.55 M/mm3 (4.2-5.4); White Blood Count 15.2 K/mm3 (4.4-11.0)
[2018-04-29 06:16] LABS: Scan Indicated on CBC? Y/N NO
[2018-04-29 07:45] VITALS: BP 100/56; PULSE 80; RESP 16; TEMP 36.3
[2018-04-29] MEDS: Ferrous Sulfate 325 MG Tablet PO ×2 (08:35→16:34)
[2018-04-29] MEDS: Prenatal Vits Tablet 1 TABLET PO (08:35)
--- NOTE | 2018-04-29 08:44 | PCM.PN.OB ---
Subjective: Doing better this am. C/O Leg pain/ calf pain in night but this resolved and thinks it was all due to sleeping position. Having some pretty severe cramping with nursing. Baby is nursing well. C/O back pain at epidural site. Very happy re and very happy she got an epidural. Pushed about 2 hr . No c/o pain this am at perineum (at least during rounds). Perineum very swollen and Vasquez in place (clear, pale urine noted) . Plan to take out catheter this afternoon. Objective: Sitting up in rocking chair, holding and nursing baby. - Physical Exam General: Alert, Oriented x3, Cooperative, No apparent distress HEENT: Atraumatic Neck: Supple Lymphatic: No Cervical, Supraclavicular, or Inguinal Adenopathy Psych/Mental Status: Normal Affect Vital Signs Temp Pulse Resp BP Pulse Ox 97.4 F L 80 16 100/56 L 98 04/29/18 07:45 04/29/18 07:45 04/29/18 07:45 04/29/18 07:45 04/29/18 03:52 Oxygen Delivery Method Room Air Weight: 71.668 kg Body Mass Index (BMI) 28.9 Intake and Output for Last 24 Hours 04/27/18 04/28/18 04/29/18 23:59 23:59 23:59 Intake Total 4946 / 4946 Output Total 1800 / 1800 1050 / 1050 Balance 3146 / 3146 -1050 / -1050 Laboratory Tests Past 24 Hrs 04/28/18 04/29/18 07:00 05:40 WBC 15.2 H RBC 3.55 L Hgb 10.4 L Hct 31.5 L MCV 88.7 MCH 29.3 MCHC 33.0 RDW 16.5 H RDW Differential 51.9 H Plt Count 194 MPV 10.5 Blood Type A POSITIVE Antibody Screen NEGATIVE Medical Necessity - Tobacco Use Smoking Status: Never smoker Assessment/Plan PPD#1 . 40 1/2 wk spont labor Doing well. Perineum swollen and cath in place. plans to remove after noon. Doubt hematoma as not painful enough for this. Reviewed all concerns today. Ice prn to perineum. Pain med prn for back pain.
[2018-04-29 12:00] VITALS: BP 98/60; PULSE 94; RESP 18; TEMP 37.6
[2018-04-29 16:00] VITALS: BP 102/58; PULSE 80; RESP 18; TEMP 37
[2018-04-29] MEDS: Senna/Docusate Sodium 1 Tablet PO (16:34)
--- NOTE | 2018-04-29 20:10 | CASEMGMT ---
Social Work Note Referral from infant's pharmacy buyer for maternal anxiety. Introduced self and role at [facility]. MOB denies hx of anxiety or anxiety currently. MOB is resting in bed breast feeding infant and FOB is at bedside. Discussed with RN, Shane, who reports that pt had a panic attack in the morning this date. No documented history of anxiety in MOB's chart. Denies further concerns with MOB or interactions with infant. Discuss that this technical writer and editor cannot have a productive conversation regarding anxiety if the pt is not experiencing symptoms nor recognizing symptoms. Made aware that SW is available tomorrow, 04/30, if additional needs/concerns arise. PLAN: MOB to discharge home with and support of spouse. Mohini Condon, [employer] PUSHER, BOXING MACHINE OPERATOR
[2018-04-29 20:29] VITALS: BP 103/58; PULSE 100; RESP 16; TEMP 37.3; O2SAT 97
[2018-04-30 01:05] VITALS: BP 95/56; PULSE 96; RESP 16; TEMP 36.7; O2SAT 96
[2018-04-30] MEDS: Ibuprofen 600 MG Tablet PO ×2 (01:13→08:51)
[2018-04-30] MEDS: Acetaminophen 500 MG Tablet 1000 MG PO (05:33)
[2018-04-30 07:30] LABS: Pathology Specimen OB SEE PATHOLOGY REPORT
[2018-04-30 08:45] VITALS: BP 93/51; PULSE 83; RESP 18; TEMP 36.4
[2018-04-30] MEDS: Ferrous Sulfate 325 MG Tablet PO (08:52)
--- NOTE | 2018-04-30 10:13 | PCM.PN.OB ---
Subjective: No issues overnight. Sailaja is sore at the perineum, but no issues ambulating and pain manageable with medication. Infant is nursing well. Denies heavy lochia. Objective: AVSS - Physical Exam General: Alert, Oriented x3, Cooperative, No apparent distress HEENT: Atraumatic, Normocephalic Lungs: Clear to auscultation, Normal air movement Cardiovascular: Regular rate, Regular Rhythm, Normal S1, Normal S2 Abdomen: Soft, Non Tender, Non-Distended, - - Fundus firm and nontender Extremities: No edema, No Calf Tenderness, - - trace LE edema Neurological: Neuro grossly intact Psych/Mental Status: Normal Affect, Appropriate, Alert and oriented to time, place, person, mood and affect Vital Signs Temp Pulse Resp BP Pulse Ox 97.6 F L 83 18 93/51 L 96 04/30/18 08:45 04/30/18 08:45 04/30/18 08:45 04/30/18 08:45 04/30/18 01:05 Oxygen Delivery Method Room Air Weight: 71.668 kg Body Mass Index (BMI) 28.9 Intake and Output for Last 24 Hours 04/28/18 04/29/18 04/30/18 23:59 23:59 23:59 Intake Total 4946 / 4946 Output Total 1800 / 1800 1949 / 1949 Balance 3146 / 3146 -1949 / -1949 Medical Necessity - Tobacco Use Smoking Status: Never smoker Assessment/Plan 27yo PPD#2 s/p doing well. -A positive, RPR nr, HBsAg neg, Rubella immune, HIV nr - -Routine care -d/c home
--- NOTE | 2018-04-30 10:17 | PCM.DC.SUM ---
Discharge Date and Diagnosis Date of Admission: 04/28/18 Date of Discharge: 04/30/18 Hospital Course and Treatment Operations: None Procedures: None Summary of Care Provided: The patient is a 27 year old F 2 para 1 admitted at 40 4/7wga in active labor. She progressed to have a vacuum assisted . Her course was unremarkable. She was discharged to home on day #2. - Physical Exam Vital Signs Temp Pulse Resp BP Pulse Ox 97.6 F L 83 18 93/51 L 96 04/30/18 08:45 04/30/18 08:45 04/30/18 08:45 04/30/18 08:45 04/30/18 01:05 Oxygen Delivery Method Room Air Weight: 71.668 kg Body Mass Index (BMI) 28.9 Intake and Output for Last 24 Hours 04/28/18 04/29/18 04/30/18 23:59 23:59 23:59 Intake Total 4946 / 4946 Output Total 1800 / 1800 1949 / 1949 Balance 3146 / 3146 -1949 / Discharge Diet: No Restrictions Discharge Activity: Return to Normal Activity, May Drive, May Shower Return to work on:: 06/27/18 May shower in (days): 0 May resume sexual activity in: 6 weeks Call your doctor if your incision/area has: Sudden Increased Bleeding, Increased Pain/ Swelling, Increased Redness, Foul Smelling Discharge Call your doctor if you observe: Fever of 101 or Higher, Inability to urinate, Inability to have a bowel movement, Using more than one pad per hour, Shortness of breath, Chest pain, Calf discomfort, Uncontrolled pain Cleanse incision/area with: Soap & Water Home Medications: Medications to take at Discharge Vits [Prenatabs FA ] 1 tablet PO DAILY 12/26/15 Ferrous Sulfate [Iron] 325 mg PO BID 04/12/18 Ibuprofen [Motrin] 600 mg PO Q6H PRN PRN #30 tab 04/28/18 Docusate Sodium [Colace] 100 mg PO BID PRN PRN #60 capsule 04/30/18 Following Prescrptions Were Given to Patient: Ibuprofen [Motrin] 600 mg PO Q6H PRN PRN #30 tab PRN Reason: pain or cramping Docusate Sodium [Colace] 100 mg PO BID PRN PRN #60 capsule PRN Reason: Constipation Primary Care Physician: Care Physician,No Primary [Primary Care Provider] - Please Follow Up With: Jocelin Guevara MD Medical Necessity - Tobacco Use Smoking Status: Never smoker Meaningful Use Info Meaningful Use Diagnoses (Choose all that apply): None applicable
[2018-04-30] MEDS: Senna/Docusate Sodium 1 Tablet PO (10:47)
[2018-04-30] MEDS: oxyCODONE 5 MG Tablet PO (10:47)
--- NOTE | 2018-04-30 12:39 | NURSING ---
1000 pt stated she has to urinate often and perineum was very painful. Fundus palpated, fundus midline and firm, scant rubra. Hat placed in toliet to measure voids until d/c. First one was 150. Pt asked for oxyir. One given.
--- OUTSIDE RECORDS SUMMARY | 2018-07-02 19:31 | XMS RPT_ITS ---
:1990 Author Organization OHIP Support Name Relationship Address Phone [facility] Unavailable [address] + [address] [place] [address] [employer] Unavailable [address] + [address] [place] [address] JOHN EM Unavailable [address] + [place] [address] [employer] Unavailable [address] + [address] [place] [address] [employer] Unavailable [address] + [address] [place] [address] JOHN EM Unavailable [address] + [place] [address] [employer] Unavailable [address] + [address] [place] [address] KRISTYN SAUNDERS Unavailable [address] + [place] [address] JOHN EM Unavailable [address] + [place] [address] [employer] Unavailable [address] + [address] [place] [address] KRISTYN SAUNDERS Unavailable [address] + [place] [address] JOHN EM Unavailable [address] + [place] [address] [facility] Unavailable [address] + [address] [place] [address] MADDING, KRISTYN Unavailable [address] + [place] [address] NAUMOFF, EM Unavailable [address] + [place] [address] [facility] Unavailable [address] + [address] [place] [address] MADDING, KRISTYN Unavailable [address] + [place] [address] NAUMOFF, EM Unavailable [address] + [place] [address] [facility] Unavailable [address] + [address] [place] [address] MADDING, KRISTYN Unavailable [address] + [place] [address] NAUMOFF, EM Unavailable [address] + [place] [address] [facility] Unavailable [address] + [address] [place] [address] MADDING, KRISTYN Unavailable [address] + [place] [address] NAUMOFF, EM Unavailable [address] + [place] [address] NAUMOFF, TIM Unavailable Unavailable + NAUMOFF, TIM Unavailable Unavailable + NAUMOFF, JUDY Unavailable [address] + [place] [address] Care Team Providers Name Role Phone MAKI [...] Unknown Z34.83 - Encounter Jocelin Guevara Active [place] for supervision of Community other normal Hospital , third Repository trimester / Z34.83(ICD-10) 01/22/2018 Active Encounter for NA Active [facility] immunization / Main [place] Z23(ICD-10) Repository 10/06/2017 Unknown Z34.81 - Encounter Jocelin Guevara Active [place] for supervision of Community other normal Hospital , first Repository trimester / Z34.81(ICD-10) 08/30/2017 Unknown Z11.3 - Encounter Jocelin Guevara Active [place] for screening for Community infections with a Hospital predominantly Repository sexual mode of transmission / Z11.3(ICD-10) 06/16/2017 Unknown G43.109 - Migraine Maki Chambers Active [place] with aura, not Community intractable, Hospital without status Repository migrainosus / G43.109(ICD-10) PROCEDURES PROCEDURES No Procedure Records FoundRESULTS RESULTS DISCHARGE SUMMARY Observed: 04/30/2018 Status: F Source: MELINA 10:19 AM [facility] Medical Records Department [address] [place] [address] Discharge Summary 04/30/18 1017 MR#: [id number] Acct: [id number] Name: IKE KERN Rep #: [id number] : 1990 27 From: Nichole Mack MD PCP: Care Physician, No Primary Status: ADM IN Location: [place] [address]-1 Discharge Date and Diagnosis Date of Admission: [...] F Source: MELINA NO DIFF 5:40 AM [facility] Order Comment: Reason for Laboratory Test [...] MPV 10.5 Performed By: #### L100.0500 #### [facility] [address] [place], [address] DISCHARGE INSTRUCTION Observed: 04/28/2018 Status: F Source: MELINA 12:50 PM [facility] Medical Records Department [address] [facility] [place] [address] Instructions for Home/Discharge Instructions 04/28/18 1249 MR#: [id number] Acct: [id number] Name: IKE KERN Rep #: [id number] : 1990 27 From: Sav Bassett MD [...] OPERATIVE REPORT Observed: 04/28/2018 Status: F Source: [place] 12:48 PM [facility] Medical Records Department [address] [place] [address] Operative Report 04/28/18 1240 MR#: [id number] Acct: [id number] Name: IKE KERN Rep #: [id number] : 1990 27 From: Sav Bassett MD PCP: Care Physician, No Primary Status: ADM IN Location: [place] [address] Vaginal Delivery Maternal Presentation: Active Labor Presented [...] SPECIMEN OB Collected: 04/28/2018 Status: F Source: [place] 12:35 PM [facility] Order Comment: Reason for Laboratory Test Placenta for lab studies Send Specimen For (Specify): Studies @ [facility] Lab:Routine Time of Procedure: 1215 Date [...] for testing. Performed By: #### L350.1800 #### [facility] [address] [place], [address] PLACENTA Observed: 04/28/2018 Status: F Source: [place] 12:15 PM [facility] Patient: IKE KERN : 1990 (27/) Acct Num: [id number] Phys: Serjio MERCEDES,Sav Unit Num: [id number] Loc: WP DX670-3 Specimen: [id number] Received: 04/28/18 - 1325 Spec [...] ( end inked) AM:laurel 04/29/18 TC:2 CPT: 57311 HEADER OPERATION: Vaginal delivery PRE-OP DIAGNOSIS: Meconium [...] on file> Performed By: #### PPLAC #### [facility] [address] [facility] [place], [place], [address] CBC-COMPLETE BLOOD CNT Collected: 04/28/2018 Status: F Source: MEL[place] NO DIFF 7:00 AM [facility] TYPE CODE TESTS RESULT OUT OF [...] MPV 10.5 Performed By: #### L100.0500 #### [facility] [address] [facility] [place], [place], [address] TYPE AND SCREEN Collected: 04/28/2018 Status: F Source: MEL[place] 7:00 AM [facility] Order Comment: Reason for Type AND Screen/Red Cells: ROUTINE TYPE CODE TESTS RESULT OUT OF RANGE REFERENCE UNITS LAB B10.0800 A Normal BLOOD TYPE GEL POSITIVE LAB B100.4000 Normal Antibody NEGATIVE Screen Performed By: #### B101.7450 #### [facility] [address] [facility] [place], [place], [address] Observed: 03/28/2018 Status: F Source: MELINA CULTURE, GROUP B 3:30 PM [facility] REPOSITORY Comments: VAGINAL/RECTAL MINDY Culture Group B Beta Streptococcus is not isolated. Performed By: #### M100.1800 #### [facility] [address] [place], [address] CBC-COMPLETE BLOOD CNT Collected: 02/02/2018 Status: F Source: MEL[place] NO DIFF 8:42 AM [facility] TYPE CODE TESTS RESULT OUT OF [...] MPV 10.3 Performed By: #### L100.0500 #### [facility] [address] [facility] [place], [address] GLUCOSE CHALLENGE GEST Collected: 02/02/2018 Status: F Source: MELINA 1H 50G 8:42 AM [facility] TYPE CODE TESTS RESULT OUT OF RANGE REFERENCE UNITS LAB L501.0250 70-140 mg/dL Normal GLU GEST 104 50g 1H Performed By: #### L501.0250 #### [facility] [address] [place], [address] CNNURSE Observed: 01/22/2018 Status: COMPLETED Source: GAN 8:50 AM [facility] REPOSITORY Nurse Visit (CORWST) JOHNIKE ([id number]) 1990 F Date Time Provider Department 01/22/18 8:50 AM [facility] During your visit today, we recorded the following information about you: Dalila Parks Aden 01/22/2018 8:56 AM Signed 27 year old female here for INACTIVATED INFLUENZA VACCINE. 7728-7946 Season Patient is identified by name and date of : Yes [] CONTRAINDICATIONS color enhanced section Age less than 6 months? No Allergy to eggs, chicken, chicken feathers, or chicken dander? No Allergy to thimerosal (a preservative) or formaldehyde, gelatin? No History of severe reaction to any vaccine component or a previous dose of influenza vaccination? No History of Guillain-[place] Syndrome within 6 weeks after a previous [...] sheet given? Yes See immunization activity in [facility] for details of immunizations adminstered today. Patient age: [age] year old For The 2284-5336 Flu Season 6-35 months old: Fluzone 0.25 [...] QUADRIVALENT AGE 3 YRS PLUS + IM [[id number]] Order #: [id number] Prescriptions as of 01/22/2018 Sig: FIORICET ORAL Take 1 tablet by mouth every * ONDANSETRON 4 MG DISINTEGRATI* Take 1 tablet by mouth every * BENZONATATE 100 MG CAPSULE Take 1 capsule by mouth three* DEXTROAMPHETAMINE-AMPHETAMINE* Take 30 mg by mouth once jaleel* MAXALT-HUMID SYSTEM OPERATOR ORAL Take by mouth as needed. 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 1702-1055 Season Patient is identified by name and date of : Yes [] CONTRAINDICATIONS color enhanced section Age less than 6 months? No Allergy to eggs, chicken, chicken feathers, or chicken dander? No Allergy to thimerosal (a preservative) or formaldehyde, gelatin? No History of severe reaction to any vaccine component or a previous dose of influenza vaccination? No History of Guillain-[place] Syndrome within 6 weeks after a previous [...] sheet given? Yes See immunization activity in [facility] for details of immunizations adminstered today. Patient age: [age] year old For The 7817-8828 Flu Season 6-35 months old: Fluzone 0.25 [...] months time. Observed: 09/30/2017 Status: F Source: [place] URINE CULTURE 7:37 PM [facility] REPOSITORY Sp. Request/Comment: - Specimen received in preservative Culture Result - <10,000 CFU/ml Normal urogenital manjeet Performed By: #### URCUL #### [facility] [address] [place] [id number] DOWNTIME REPORT Observed: 09/30/2017 Status: F Source: [place] 1:39 PM [facility] Medical Records Department [address] [place] [address] Downtime Report MR#: [id number] Acct: [id number] Name: IKE KERN Rep #: [id number] : 1990 27 From: Gregor Rios PCP: Maki Chambers DO Status: REG CLI This patient was seen during an EMR downtime September 13, 2017 - September 20, 2017. This patient may have a combination of paper and electronic documentation or all paper documentation. All documentation is viewable within the e-chart portion of [employer] for each patient visit. PROGRESS Observed: 09/30/2017 Status: COMPLETED Source: [place] 7:07 AM [facility] [place] REPOSITORY HNO ID: [id number] Author: Louann Pete) Nicki Service: (none) Author [...] mg by mouth once daily. RIZATRIPTAN BENZOATE (MAXALT-HUMID SYSTEM OPERATOR ORAL) Take by mouth as needed. FAMILY [...] not obtained, recommend f/u with PCP or HAM FACER. Unable to prescribe any controlled medication through [...] APRN.CNP CNOV Observed: 09/30/2017 Status: COMPLETED Source: [place] 6:45 AM [facility] REPOSITORY Office Visit (WSTR) IKE KERN ([id number]) 1990 F Date Time Provider Department 09/30/17 [...] mg by mouth once daily. RIZATRIPTAN BENZOATE (MAXALT-HUMID SYSTEM OPERATOR ORAL) Take by mouth as needed. FAMILY [...] not obtained, recommend f/u with PCP or HAM FACER. Unable to prescribe any controlled medication through [...] for concern. INSTRUCTIONS: 1. You may use mqlk-hjb-jzzxbje pain medication such as acetaminophen 2. Try [...] Nausea/Vomiting.Disp: 12 tabletRfl: 0 UA DIP B/O [[id number]] Order #: [id number] URINE CULTURE [SQURCUL] Order #: [id number] Prescriptions as of 09/30/2017 Sig: FIORICET ORAL Take 1 tablet by mouth every * ONDANSETRON 4 MG DISINTEGRATI* Take 1 tablet by mouth every * BENZONATATE 100 MG CAPSULE Take 1 capsule by mouth three* DEXTROAMPHETAMINE-AMPHETAMINE* Take 30 mg by mouth once jaleel* MAXALT-HUMID SYSTEM OPERATOR ORAL Take by mouth as needed. Problem [...] for concern. INSTRUCTIONS: 1. You may use dduy-lwb-wvfaitv pain medication such as acetaminophen 2. Try [...] by LOUANN CACERES on 09/30/17 HIV - [facility] Collected: 09/15/2017 Status: F Source: [place] 11:20 AM [facility] Order Comment: RESULT(S) PREVIOUSLY REPORTED ON MANUAL REQUISITION DURING DOWNTIME. TYPE CODE TESTS RESULT OUT OF REFERENCE UNITS RANGE LAB L3890.6005 Nonreactive Nonreactive Normal HIV - [facility] Performed By: #### L3890.6005, L509.4000 #### [facility] [address] [place], [address] RUBELLA IGG Collected: 09/15/2017 Status: F Source: MEL[place] 11:20 AM [facility] Order Comment: RESULT(S) PREVIOUSLY REPORTED ON MANUAL REQUISITION DURING DOWNTIME. TYPE CODE TESTS RESULT OUT OF RANGE REFERENCE UNITS LAB L509.4000 IU/mL Normal Rubella IgG 204.8 Result Comment: Antibody results Interpretation of Immune Status < 5 IU/ml Presumed Non-immune 5 - < 10 IU/ml Equivocal > or = 10 IU/ml Presumed Immune Performed By: #### L3890.6005, L509.4000 #### [facility] [address] [facility] [place], [place], [address] T AND S-NO Collected: 09/15/2017 Status: F Source: MELINA CHARGE W/PNP 11:20 AM [facility] Order Comment: RESULT(S) PREVIOUSLY REPORTED ON MANUAL REQUISITION DURING DOWNTIME. Reason for Type AND Screen/Red Cells: Surgery? N TYPE CODE TESTS RESULT OUT OF RANGE REFERENCE UNITS LAB B10.0800 A Normal BLOOD POSITIVE TYPE GEL LAB B100.4050 Normal Ab SCREEN NEGATIVE GEL Performed By: #### B100.7550 #### [facility] [address] [facility] [place], [place], [address] CBC-COMPLETE BLOOD CNT Collected: 09/15/2017 Status: F Source: MEL[place] NO DIFF 11:20 AM [facility] Order Comment: RESULT(S) PREVIOUSLY REPORTED ON [...] MPV 10.5 Performed By: #### L100.0500 #### [facility] [address] [place], [address] THYROID STIM HORMONE Collected: 09/15/2017 Status: F Source: MELINA (TSH) 11:20 AM [facility] Order Comment: RESULT(S) PREVIOUSLY REPORTED ON MANUAL REQUISITION DURING DOWNTIME. TYPE CODE TESTS RESULT OUT OF RANGE REFERENCE UNITS LAB L501.9520 0.358-3.74 uIU/mL Normal TSH 1.19 Performed By: #### L501.9520 #### [facility] [address] [place], [address] RPR Collected: 09/15/2017 Status: F Source: MEL[place] 11:20 AM [facility] TYPE CODE TESTS RESULT OUT OF REFERENCE UNITS RANGE LAB L700.5100 NONREACTIVE Normal RPR NONREACTIVE Performed By: #### L700.5100 #### [facility] [address] [place], [address] HEPATITIS B SURFACE Collected: 09/15/2017 Status: F Source: MELINA AG 11:20 AM [facility] TYPE CODE TESTS RESULT OUT OF RANGE REFERENCE UNITS LAB L3100.0400 Normal HB SURF AG Result Comment: TEST RESULT LIMITS HBsAg Screen Negative Negative TESTING PERFORMED AT [facility]. ORIGINAL REPORT ON FILE IN LAB CONTAINS ADDITIONAL TEST SITE INFORMATION. Performed By: #### L3100.0390, L3100.0625 #### [facility] (refer to report for specific site) refer to report for address and phone number HEPATITIS C ANTIBODIES Collected: 09/15/2017 Status: F Source: [place]EL[place] 11:20 AM [facility] TYPE CODE TESTS RESULT OUT OF RANGE REFERENCE UNITS LAB L3100.0650 Normal HEP C AB Result Comment: TEST RESULT LIMITS HCV Antibody Hep C Virus Ab 0.1 s/co ratio 0.0 - 0.9 Negative: < 0.8 Indeterminate: 0.8 - 0.9 Positive: > 0.9 The CDC recommends that a positive HCV antibody result be followed up with a HCV Nucleic Acid Amplification test (913343). TESTING PERFORMED AT [facility]. ORIGINAL REPORT ON FILE IN LAB CONTAINS ADDITIONAL TEST SITE INFORMATION. Performed By: #### L3100.0390, L3100.0625 #### [facility] (refer to report for specific site) refer to report for address and phone number CT/NG WCH BY PCR Collected: 08/30/2017 Status: F Source: [place] 3:45 PM [facility] TYPE CODE TESTS RESULT OUT OF RANGE REFERENCE UNITS LAB L8200.2100 Negative Normal Chlam Negative Trac PCR LAB L8200.2200 Negative Normal NG by Negative PCR Performed By: #### L8200.2000 #### [facility] [address] [facility] [place], [address] BRAIN W/WO CONTRAST Observed: 06/16/2017 Status: F Source: [place] 4:25 PM [facility] Imaging Services [address] [place] [address] Brain W/WO Contrast MR#: [id number] Acct: [id number] Name: IKE KERN Rep #: [id number] : 1990 F 26 From: Naveen Valadez MD PCP: Maki Chambers DO Status: REG CLI Study: Brain W/WO Contrast Date of Exam: 06/16/17 Exam# [id number] Ordering Dr: Maki Chambers DO STUDY: MRI [...] Service support , CC: Maki Chambers DO Pairer Odds: Signed ALLERGIES ALLERGIES DATE TYPE / CODE NAME / CODE REACTION SEVERITY SOURCE 05/02/2018 Drug No Known Unknown [facility] Allergy/416 Allergies/U42682 [facility] 900570(SNOM 0388(RXNORM) Repository ED CT) Drug NO KNOWN [facility] Class/90224 ALLERGIES Main [place] 1003(SNOMED Repository CT) ENCOUNTERS ENCOUNTERS ADMIT/DISCHARGE ACCOUNT NUMBER ADMITTING ENCOUNTER LOCATION SOURCE CLASS 05/02/2018/05/02/19 [id number] Ambulatory BMSBuilding: Melina 19 BMS.A [facility] Repository 04/28/2018/04/30/19 [id number] [facility] Inpatient [place] 19 Encounter [facility] ding:WPRoom: Repository LN195Fky: 1 04/12/2018/04/12/19 [id number] Ambulatory [place] [address] [place] [address] ding:WPOUTRo Repository om: [id number] 03/28/2018 [id number] Ambulatory [facility] ding:LABSPEC Repository 02/02/2018 [id number] Ambulatory [facility] ding:WOBLAB Repository 01/22/2018/01/25/20 [id number] Ambulatory [address] Repository 09/30/2017/10/02/19 [id number] Ambulatory [address] Repository 09/15/2017 [id number] Ambulatory [facility] ding:LABSPEC Repository 08/30/2017 [id number] Ambulatory [facility] ding:LABSPEC Repository 06/16/2017 [id number] Ambulatory [facility] ding:MRI Repository 05/28/2017 [id number] [facility] PAYERS PAYERS ENCOUNTER GUARANTOR PAYER SUBSCRIBER SOURCE 05/02/2018 IKE A Primary IKE A [place] [id number] PEREZ Insurance:MEDICAL NAUMOFFDOB: [facility] [place] Number: Repository [address]Dsu: (951) [id number] [phone] () Date:4036-50-86NY [address] [place] [address]YV: 05/02/2018 Secondary NOT GIVENUNK [place] Insurance:SELF PAY [facility] Number: Effective Repository Date:2018-05-02 04/28/2018 IKE A Primary IKE A [place] [id number] PEREZ Insurance:MEDICAL NAUMOFFDOB: [facility] [id number] Number: Repository [address]Sdw: 330 [id number] [phone] (HP) Date:7692-88-06FX [address] [place] [address]MN: 04/28/2018 Secondary NOT GIVENUNK [place] Insurance:SELF PAY [facility] Number: Effective Repository Date:2018-04-28 04/12/2018 IKE A Primary IKE Summers [id number] PEREZ Insurance:MEDICAL NAUMOFFDOB: [facility] 3620[place] Number: Repository [address]Dtz: 330 [id number] [phone] (HP) Date:4735-73-84FQ [address] [place] [address]VZ: 04/12/2018 Secondary NOT GIVENUNK [place] Insurance:SELF PAY [facility] Number: Effective Repository Date:2018-04-12 03/28/2018 Ike Primary Ike Summers [id number] [place] Insurance:MEDICAL NaumoffDOB: [facility] 8790[place]04-[place]NF[place] Number: Repository [address]Jyj: 330 [id number] [phone] (HP) Date:4360-73-83GO [address] [address]GT: 03/28/2018 Secondary NOT GIVENUNK [place] Insurance:SELF PAY [facility] Number: Effective Repository Date:2018-03-28 02/02/2018 Ike Primary Ike Summers [id number] [address] Insurance:MEDICAL NaumoffDOB: [facility] [id number], [place] Number: Repository [address]Ytc: 330 [id number] [phone] (HP) Date:2590-23-68IK [address] [address]UU: 02/02/2018 Secondary NOT GIVENUNK [place] Insurance:SELF PAY [facility] Number: Effective Repository Date:2018-02-02 09/15/2017 Ike Primary Ike [place] [id number] [address] Insurance:MEDICAL NaumoffDOB: [facility] [id number], [place] Number: Repository [address]Hnx: 330 [id number] [phone] (HP) Date:6323-69-93YB [address] [address]PO: 09/15/2017 Secondary NOT GIVENUNK [place] Insurance:SELF PAY [facility] Number: Effective Repository Date:2017-09-15 08/30/2017 [facility] Ike [place] [id number] [address] Insurance:MEDICAL NaumoffDOB: [facility] 6901-04-63FOKJeffersonville, [place] Number: Repository [id number]: 330 [id number] [phone] (HP) Date:0771-59-70RJ [address] [address]UE: 08/30/2017 Secondary NOT GIVENUNK [place] Insurance:SELF PAY [facility] Number: Effective Repository Date:2017-08-30 06/16/2017 [facility] Ike Summers [id number] [address] Insurance:MEDICAL NaumoffDOB: [facility] [id number], [place] Number: Repository [address]Euj: 330 [id number] [phone] (HP) Date:2612-46-43FQ [address] [address]YP: 06/16/2017 Secondary NOT GIVENUNK [place] Insurance:SELF PAY [facility] Number: Effective Repository Date:2017-05-31 05/28/2017 [facility] NAUMOFFDOB: Insurance:MEDICAL NAUMOFFDOB: [facility] [id number] [address] [id number] Repository [facility] Number: [address] [place] [id number], [place] [address] Date:2017-05-25 259[address]Pct: (961) [email or web address] [id number] [phone] : Name:BENOIT JORDAN (HP)Tel: (192) (MQ)Tel: [phone], [place] [address] (WP) [phone] (TJ) [phone]:
== END 2018-04-30 12:30 | disposition home or self-care (01) | DRG 807 ==
PROVIDERS: Admitting Provider Obstetrics & Gynecology; Referring Provider Obstetrics & Gynecology; Visit Provider Obstetrics & Gynecology
DX: O34.219 Maternal care for unspecified type scar from previous cesarean delivery (principal); O77.0 Labor and delivery complicated by meconium in amniotic fluid; O70.1 Second degree perineal laceration during delivery; O99.02 Anemia complicating childbirth; D50.9 Iron deficiency anemia, unspecified; O76 Abnormality in fetal heart rate and rhythm complicating labor and delivery; O69.81X0 Labor and delivery complicated by cord around neck, without compression, not applicable or unspecified; Z3A.40 40 weeks gestation of pregnancy; Z37.0 Single live birth
CPT/HCPCS: 59025; 59050; 85027; 86850; 86900; 88307; 99218; J7120; G0378

== ENCOUNTER → 2018-07-05 15:32 | Outpatient (CLI) | payer OTHER, SELFPAY ==
[2018-05-02 09:03] VITALS: BMI 28.9
[2018-07-05 18:14] LABS: Hematocrit 40.7 % (37-47); Hemoglobin 13.1 g/dl (12.0-15.0); Mean Corp Hgb Conc 32.2 g/gl (32-36); Mean Corpuscular Volume 90.2 fL (81-99); Mean Platelet Vol. 10.4 fl (6.2-12.0); Platelet Count 270 K/mm3 (150-450); RBC Distribution Width CV 14.5 % (11.6-14.6); Red Blood Count 4.51 M/mm3 (4.2-5.4); White Blood Count 6.3 K/mm3 (4.4-11.0)
[2018-07-05 18:21] LABS: Scan Indicated on CBC? Y/N NO
[2018-07-05 18:44] LABS: ALB/GLOB Ratio 1.3 RATIO (0.9-2.4); AST(SGOT) 13 U/L (15-37); Alanine Aminotransfer ALT/SGPT 34 U/L (13-56); Albumin, Serum 4.2 g/dL (3.2-5.0); Alkaline Phosphatase 80 U/L (45-117); Anion Gap 4 (5-15); BUN 12 mg/dL (7-18); BUN/Creat Ratio 13.4 RATIO (10-20); Calcium,Total 8.4 mg/dL (8.5-10.1); Chloride 106 mmol/L (98-107); EST Glomerular Filtration Rate 79 mL/min (>60); Est Glom Filt Rate - Afr Amer 95 mL/min (>60); Globulin 3.3 g/dL (2.2-4.2); Glucose 112 mg/dL (74-106); Potassium 3.9 mmol/L (3.5-5.1); Protein, Total 7.5 g/dL (6.4-8.2); Sodium Level 139 mmol/L (136-145); Thyroid Stim Hormone (TSH) 0.93 uIU/mL (0.358-3.74)
== END ==
PROVIDERS: Visit Provider Obstetrics & Gynecology
DX: R60.9 Edema, unspecified (principal); F41.9 Anxiety disorder, unspecified
CPT/HCPCS: 36415; 80053; 84443; 85027

== ENCOUNTER → 2018-07-15 | Outpatient (CLI) | payer OTHER, SELFPAY ==
[2018-05-02 09:03] VITALS: BMI 28.9
[2018-07-15 16:34] LABS: Vitamin B12 1835 pg/mL (211-911)
== END | disposition home or self-care (01) ==
LOC: WOBLAB 14:45
PROVIDERS: Visit Provider Obstetrics & Gynecology
DX: H57.10 Ocular pain, unspecified eye (principal)
CPT/HCPCS: 36415; 82607

== ENCOUNTER 2019-09-12 08:49 | Day surgery (SDC) | payer OTHER, SELFPAY ==
[2019-09-08 08:31] VITALS: BMI 28.9
[2019-09-12 09:12] LABS: Internal QC Validated? YES +Cl - CLEAR BKGD; Pregnancy, Urine Negative Negative
[2019-09-12 09:17] VITALS: BP 116/76; PULSE 86; RESP 16; TEMP 37.1; O2SAT 98; BMI 25.0
[2019-09-12] MEDS: Lactated Ringers 1,000 ML 100 ML IV (09:23)
--- NOTE | 2019-09-12 10:47 | HP.PCM_ITS ---
History and Physical Date of Admission: 09/12/19 [facility] [address] [place] [address] OFFICE VISIT Date of Service: 09/08/19 MR#: [id number] Acct: [id number] Name: IKE LOPEZ Rep #: [id number] : 1990 Provider: Dr. Johnie Jeong MD Age/Sex: 29/F Location: [facility] Status: Signed Intake Vital Signs 09/08/19 BMI 28.9 09/08/19 Height 5 ft 2 in 09/08/19 Weight: 135 lb 09/08/19 BMI 24.7 09/08/19 BP 105/73 09/08/19 Blood Pressure Location Rt brachial 09/08/19 Position Sitting 09/08/19 Respiration 16 09/08/19 Pulse 100 09/08/19 Pulse Source Monitor 09/08/19 Temp 97.9 F 09/08/19 Temp Source Temporal 09/08/19 Pulse Oximetry (%) 100 09/08/19 Oxygen Delivery Method room air Intake Visit Reasons: Hemorrhoids discuss surgery seen 06/03/18 Box Gluer Required: No Is patient in pain?: No Allergies No Known Allergies Allergy (Verified 09/08/19 08:29) Medications dextroamphetamine-amphetamine ER 25 mg 24hr capsule,extend release 25 mg PO QAM cap 09/08/19 [History Confirmed 09/08/19] duloxetine 30 mg capsule,delayed release 30 mg PO DAILY cap 09/08/19 [History Confirmed 09/08/19] [facility] Medical History Acid reflux (Acute) Hemorrhoids (Acute) Surgical History History of (Acute) History of colonoscopy (Acute) History of laparoscopy (Acute) History of wisdom tooth extraction (Acute) Social History (Updated 09/08/19 @ 08:[address] Mihai Jeong MD) Smoking Status: Never smoker second hand exposure: No alcohol intake: never substance use type: does not use caffeine: Yes what type of physical activity do you participate in: walking, running, weight training frequency: 3-4 times per week HPI HPI HPI: IKE LOPEZ, is a 29 F who presents to the office today for HPI HPI HPI: IKE LOPEZ, is a 29 F who presents to the office today for Evaluation of hemorrhoids. I originally saw this patient back in April 2018. She recently had a delivery and had a significant repair from an episiotomy. She has had discomfort with a an enlarged hemorrhoid which her DIGITAL MARKETING MANAGER physician thought that it might be a prolapse. She was treated conservatively and did well with this. She has noticed that she has a significant external hemorrhoid tag with an internal component coming out. It makes wiping and keeping the area down there clean and is slightly uncomfortable at times. She has not noticed any bleeding from it. She has no pain when stool is leaving her anus. ROS General General: No weight change, appetite, fatigue, colon cancer, breast cancer or weakness HEENT HEENT: No difficulty swallowing, eye injury, eye surgery, swollen glands or hoarseness Endo Endocrine: No thyroid disease, diabetes mellitus, thyroid cancer, Hair loss, heat intolerance or cold intolerance Skin Skin: No rash or changing moles Musc Musculoskeletal: No back problems, arthritis, rheumatoid arthritis, gout or joint pain Cardio Cardiovascular: No murmur, pacemaker, heart disease, atrial fibrillation, high blood pressure, heart attack, heart stent, palpitations, shortness of breat with exertion or chest pain Psych Psychiatric: No depression, anxiety or hearing voices Resp Respiratory: No shortness of breath, No sleep apnea, No cough, No COPD, No asthma, No emphysema, No wheezing Gastro Gastrointestinal: No abdominal pain, No nausea or vomiting, No diarrhea, No constipation, No blood in stool, No acid reflux, Yes hemorrhoids, No ulcers, No gallbladder problem, No black,tarry stools Emre Hematologic: No blood thinners, No blood disorders, No bleeding, No anemia, No blood clots Neuro Neurologic: Yes tingling, No weakness Exam Const General: no acute distress, well developed, well hydrated Orientation: oriented to person, oriented to place, oriented to time [facility] Head: normocephalic, atraumatic Ears: external ears normal Mouth: moist mucous membranes Eyes Sclera: sclerae normal Pupils: normal by confrontation Neck Neck: no lymphadenopathy noted Neck mass: No Thyroid: thyroid normal, symmetrical Chest Chest palpation & inspection: normal inspection of the chest Resp Effort & Inspection: normal respiratory effort Auscultation: clear to auscultation bilaterally Percussion: percussion normal Cardio Rate: regular rate Rhythm: regular rhythm Heart Sounds: no murmurs GI Palpation: soft, no hepatosplenomegaly, no masses, nontender Rectal Exam: other Other: Rectal exam deferred. Patient has a rather large external and internal component hemorrhoid on the anterior aspect of her anus. In addition on her left lateral side she has a another external and internal hemorrhoidal component. Extrem General: normal to inspection, no clubbing, cyanosis or edema Assessment & Plan Problems 1. Grade II hemorrhoids K64.1 Plan My plan is to do a hemorrhoidectomy on the anterior hemorrhoidal area. At the time of surgery I will evaluate the left lateral side to see if this should be removed at the same time but that will depend on how much work goes into repairing and removing the larger of the hemorrhoids. I had a rather lengthy discussion with the patient with regards to pain discomfort bleeding so that she understands fully that this is an elective surgery. Risks include mostly bleeding which could require a second operation to control bleeding with a very minimal risk of blood clots heart attacks pneumonia strokes up to including . Coding Level of Care Code Off vis,est,level 3 Diagnoses Grade II hemorrhoids K64.1 ??Hemorrhoid type: second degree 09/08/19 0849 <Electronically signed by Mihai perry MD> Date _ Mihai Jeong MD Cosigner Signature: Date (if applicable) CC: Dr. Luis Chambers DO; Dr. Nichole Mack MD ~ I have re-examined the patient. There are no clinical changes since date of exam.
--- NOTE | 2019-09-12 10:49 | DCINST_ITS ---
Discharge Diet: No Restrictions Discharge Activity: Return to Normal Activity, May Not Drive - while taking narcotic pain medications. Additional Activity Instructions:: Do not drive or work with heavy equipment or sign legal documents for 24 hours. Be aware that pain medications may cause nausea. You should typically eat light foods as you take your pain medications. Pain medications may also cause constipation, if you have difficulty with this please discuss with your doctor. Additional Dressing/Incision Instructions:: Leave the operative bandage on for 2 days. If a local anesthetic plug was placed in the anal area, try not to expel for 24-[address] dibucaine ointment on the perianal area as needed. Sitz baths twice daily and after bowel movements. Allergies/Adverse Reactions: Allergies No Known Allergies Allergy (Verified 09/12/19 08:57) Medications to take at Discharge dextroamphetamine-amphetamine ER 25 mg 24hr capsule,extend release 25 mg PO QAM cap 09/08/19 duloxetine 30 mg capsule,delayed release 30 mg PO DAILY cap 09/08/19 Trimipramine Maleate [Surmontil] 50 mg PO QHS 09/11/19 Oxycodone HCl/Acetaminophen [Percocet 5/325] 1 - 2 tablet PO Q4H PRN PRN 6 Days #30 tablet 09/12/19 The following prescriptions were given: Oxycodone HCl/Acetaminophen [Percocet 5/325] 1 - 2 tablet PO Q4H PRN PRN 6 Days #30 tablet PRN Reason: Pain Transmission Status: Received by [facility]/pharmacy #[id number] Primary Care Physician: Luis Chambers DO [Primary Care Provider] - Test Results: Test results from this visit will be discussed in further detail at your follow- up appointment, if applicable. Please Follow Up With: Mihai Jeong MD - [phone] When: Plan to have a follow up approximately 7 days after surgery.
[2019-09-12] MEDS: Cefazolin 2 GM in 0.9% Normal Saline 100 ML IV (11:00)
--- NOTE | 2019-09-12 11:00 | HEM_PTH ---
PATIENT: IKE LOPEZ LOC: [facility] U#:[id number] AGE/SX: 29/F ROOM: RE09/12/[address]: Dr. Mihai Jeong MD : 1990 BED: DIS: 09/12/2019 SPEC #: [id number] RECD: 09/12/19 12:11 STATUS: ELBERT REKaley #: [id number] STEVO: 09/12/19 11:[address]: Mihai Jeong DEPT: SURGICAL PATHOLOGY RECD BY: Jennifer Caban ENTERED: 09/13/19 09:07 SP TYPE: HEMORRHOID OTHR DR: Dr. Luis Chambers, DO Tissues: HEMORRHOIDS Procedures: Surgery Specimen Level III HEADER OPERATION: Hemorrhoidectomy PRE-OP DIAGNOSIS: Grade II hemorrhoids TISSUE SUBMITTED: Hemorrhoid MICROSCOPIC DIAGNOSIS Hemorrhoid: A piece of anorectal mucosa with dilated and congested blood vessels, consistent with hemorrhoid. SJ:desiree 09/14/19 MICROSCOPIC DESCRIPTION Slides are reviewed. GROSS DESCRIPTION Received in fixative is one container labeled with the patient's name and designated hemorrhoid. The specimen consists of a single elongated fragment of contreras mucosa measuring 3.5 x 1 x 0.8 cm. The specimen is sectioned and totally submitted in one cassette. / AM:desiree 09/13/19 TC:5 CPT: 10455
--- NOTE | 2019-09-12 11:04 | PCM.OPRPT ---
Problem List (1) Hemorrhoids Status: Acute Qualifiers: Hemorrhoid type: second degree Qualified Code(s): K64.1 - Second degree hemorrhoids Report of Operation Date of Procedure: 09/12/19 Pre-Operative Diagnosis: Hemorrhoids Post-Operative Diagnosis: Same Surgery/Procedure Performed:: Hemorrhoidectomy Type of Anesthesia:: General Anesthesiologist: Nilay Ang Specimen's removed: Hemorrhoids Description of Procedure: Patient was brought in the operating room. Placed in the supine position. Under excellent general trach intubation she was then placed in the prone position properly padded her buttocks was then taped apart sterilely prepped and draped in the usual fashion. Patient had a large internal and external hemorrhoidal component on the anterior aspect I was able to remove this with the Enseal coming down nicely towards the external sphincter and then going towards the internal hemorrhoid taking this all out in 1 nice piece. I had excellent hemostasis I clearly saw the muscle it looked good and intact. I inspected inside the anus there was no bleeding whatsoever. I had excellent hemostasis I injected Exparel I placed dibucaine and Gelfoam into the anal area sterile dressings were applied and the patient tolerated the procedure well. - Admit VTE Documentation VTE Present on Admission: No VTE Mechan Device Prophylaxis: SCD's VTE Pharm Prophylaxis ordered?: No Reason prophylaxis not ordered:: Treatment Not Indicated Procedural charges: Hemorrhoidectomy single column internal and external [id number]
[2019-09-12] MEDS: BUPIVACAINE LIPOSOME/PF 20 ML VIAL OPERA.SITE (11:15)
[2019-09-12] MEDS: Lubricating Jelly 60 GM Tube 30 GM TOPICAL (11:20)
[2019-09-12] MEDS: Dibucaine 30 GM Tube 1 APPLIC (11:25)
[2019-09-12 11:45] VITALS: BP 102/73; BP 116/76; PULSE 82; RESP 16; TEMP 36.6; O2SAT 98
[2019-09-12 12:00] VITALS: BP 106/72; BP 116/76; PULSE 68; RESP 16; O2SAT 99
[2019-09-12 12:15] VITALS: BP 105/75; BP 116/76; PULSE 66; RESP 16; O2SAT 100
[2019-09-12 12:30] VITALS: BP 104/81; BP 116/76; PULSE 69; RESP 16; TEMP 36.5; O2SAT 100
[2019-09-12 13:22] VITALS: BP 107/72; BP 116/76; PULSE 67; RESP 15; TEMP 36.4; O2SAT 100
== END 2019-09-12 13:24 | disposition home or self-care (01) ==
LOC: SDC 08:50 → AC 08:51
PROVIDERS: Anesthesiology; PCP Preventive Medicine Occupational Medicine; Referring Provider Surgery; Visit Provider Surgery
PROC: (CPT 46255; principal; 2019-09-12 10:45)
DX: K64.1 Second degree hemorrhoids (principal); Z11.59 Encounter for screening for other viral diseases
CPT/HCPCS: 46255; 81025; 87635; 88304; G2023; J7120; J2405; U0003

== ENCOUNTER → 2020-01-25 15:30 | Outpatient (CLI) | payer OTHER, SELFPAY ==
[2020-01-25 15:52] LABS: Hematocrit 39.8 % (37-47); Hemoglobin 12.9 g/dL (12.0-15.0); Mean Corp Hgb Conc 32.4 g/dL (32-36); Mean Corpuscular Hgb 30.1 pg (27.0-32.0); Mean Corpuscular Volume 92.8 fL (81-99); Mean Platelet Vol. 9.6 fl (6.2-12.0); Platelet Count 341 K/mm3 (150-450); RBC Distribution Width SD 44.2 fl (35.1-43.9); Red Blood Count 4.29 M/mm3 (4.2-5.4); White Blood Count 9.3 K/mm3 (4.4-11.0)
[2020-01-25 16:36] LABS: Prolactin 10.8 ng/mL; T4 Free Direct 0.91 ng/dL (0.76-1.46)
[2020-01-30 20:26] LABS: HPV APTIMA, High Risk Negative (Negative); HPV Reflexed? YES, CHARGE PATIENT
== END ==
PROVIDERS: PCP Preventive Medicine Occupational Medicine; Visit Provider Obstetrics & Gynecology
DX: Z12.4 Encounter for screening for malignant neoplasm of cervix (principal); O92.6 Galactorrhea
CPT/HCPCS: 36415; 84146; 84439; 84443; 85027; 87624; 88175; G0145

== ENCOUNTER → 2020-01-30 13:48 | Outpatient (CLI) | payer OTHER, SELFPAY ==
--- NOTE | 2020-01-30 13:54 | BI_ITS ---
MAMMOGRAPHY - BILATERAL DIAGNOSTIC REASON FOR EXAM: Female, 29 years old. Right nipple discharge. PERTINENT HISTORY: Non-contributory. TECHNIQUE: Digital bilateral breast devin (3D mammographic acquisition) in the CC and MLO projections. 2-D mediolateral oblique (MLO) and craniocaudad (CC) views of both breasts were obtained. CAD: Full Field Digital Mammography with Computer Added Detection was performed. COMPARISON: None. Baseline examination. FINDINGS: Breast Composition: The breasts are extremely dense, which lowers the sensitivity of mammography. There are no dominant masses or suspicious calcifications. Small benign-appearing bilateral axillary lymph nodes. No other significant abnormalities are identified. BI/DIAG MAMM W/CAD, BILAT IMPRESSION: Negative diagnostic mammogram. With the patient''s history of breast discharge, correlation with ultrasound is recommended. ASSESSMENT CATEGORY: BIRADS Category 0: Incomplete. Need additional imaging evaluation. A letter regarding these results will be sent to the patient by the facility within 30 days. Approximately 10% of breast cancers are not detected by mammography. A normal mammogram should not delay biopsy of a clinically suspicious abnormality. Electronically Signed: Myles Paredes, at 15:22 EDT , Service support ,
--- NOTE | 2020-01-30 13:54 | US_ITS ---
STUDY: ULTRASOUND BREAST - RIGHT REASON FOR EXAM: Female, 29 years old. Nipple discharge. TECHNIQUE: Axial and longitudinal images of the RIGHT breast were performed with a high resolution ultrasound transducer. # OF IMAGES: 43 COMPARISON: Comparison is made with prior mammogram done earlier in the day. FINDINGS: RIGHT Breast: The retroareolar region of the breast was examined by ultrasound. Mildly dilated retroareolar ducts. IMPRESSION: Mildly dilated retroareolar ducts. ASSESSMENT CATEGORY: BIRADS Category 2: Benign. A letter regarding these results will be sent to the patient by the facility within 30 days. Electronically Signed: Myles Paredes, at 9:29 EDT , Service support , STUDY: ULTRASOUND BREAST - LEFT REASON FOR EXAM: Female, 29 years old. Nipple discharge in the left breast. TECHNIQUE: Axial and longitudinal images of the LEFT breast were performed with a high resolution ultrasound transducer. # OF IMAGES: 43 COMPARISON: Comparison is made with prior mammogram done earlier today. FINDINGS: LEFT Breast: The retroareolar region was examined by ultrasound. There is mildly dilated retroareolar ducts. US/Breast Limited Unilateral IMPRESSION: Mildly dilated retroareolar ducts. ASSESSMENT CATEGORY: BIRADS Category 2: Benign. A letter regarding these results will be sent to the patient by the facility within 30 days. Electronically Signed: Myles Paredes, at 9:30 EDT , Service support ,
== END ==
PROVIDERS: PCP Preventive Medicine Occupational Medicine; Referring Provider Obstetrics & Gynecology; Visit Provider Obstetrics & Gynecology
DX: O92.6 Galactorrhea (principal)
CPT/HCPCS: 76642; 77062; 77066; G0279

== ENCOUNTER → 2022-04-08 | Outpatient (CLI) | payer OTHER, SELFPAY ==
[2022-04-08 11:55] LABS: Absolute Lymphocyte Count 1.47 X10^3/uL (0.83-4.51); Absolute Neutrophil Count 4.4 X10^3/uL (2.0-7.7); Basophil# 0.05 X10^3/uL; Basophil% 0.8 % (0-1); Eosinophil# 0.06 X10^3/uL; Eosinophils% 0.9 % (0-5); Hematocrit 37.1 % (37-47); Hemoglobin 12.8 g/dL (12.0-15.0); Lymphocyte # 1.47 X10^3/ul (0.83-4.51); Lymphocyte % 22.3 % (19-41); Mean Corp Hgb Conc 34.5 g/dL (32-36); Mean Corpuscular Hgb 31.3 pg (27.0-32.0); Mean Corpuscular Volume 90.7 fL (81-99); Mean Platelet Vol. 9.8 fl (6.2-12.0); Monocyte# 0.55 X10^3/uL; Monocyte% 8.4 % (0-10); NRBC Flagged by Analyzer 0 % (0-5); Neutrophil # 4.43 X10^3/uL (2.7-7.7); Neutrophil % 67.3 % (47-70); Platelet Count 288 K/mm3 (150-450); RBC Distribution Width CV 12.7 % (11.6-14.6); RBC Distribution Width SD 42.2 fl (35.1-43.9); Red Blood Count 4.09 M/mm3 (4.2-5.4); White Blood Count 6.6 K/mm3 (4.4-11.0)
[2022-04-08 12:24] LABS: hCG Titer Quant., Serum < 1 mIU/mL (1-3)
[2022-04-08 12:31] LABS: Follicle Stimulating Hormone 2.2 mIU/mL; Luteinizing Hormone 4.3 mIU/mL; T4 Free Direct 0.79 ng/dL (0.76-1.46); Thyroid Stim Hormone (TSH) 1.78 uIU/mL (0.358-3.74)
[2022-04-15 11:08] LABS: Testosterone, Free 0.56 ng/dL (0.10-0.85); Testosterone, Total 34 ng/dL (8-60)
[2022-04-15 19:24] LABS: Testosterone, % Free 1.66 % (0.50-2.80)
== END | disposition home or self-care (01) ==
LOC: WOBLAB 11:27
PROVIDERS: PCP Preventive Medicine Occupational Medicine; Visit Provider Obstetrics & Gynecology
DX: N93.9 Abnormal uterine and vaginal bleeding, unspecified (principal)
CPT/HCPCS: 36415; 82670; 83001; 83002; 84402; 84403; 84439; 84443; 84702; 85025

== ENCOUNTER → 2022-07-31 | Outpatient (CLI) | payer OTHER, SELFPAY ==
[2022-07-31 17:01] LABS: Progesterone Level 9.23 ng/mL (See Comment)
== END | disposition home or self-care (01) ==
PROVIDERS: PCP Preventive Medicine Occupational Medicine; Visit Provider Nurse Practitioner Women's Health
DX: N97.9 Female infertility, unspecified (principal)
CPT/HCPCS: 36415; 84144

== ENCOUNTER → 2022-12-16 | Outpatient (CLI) | payer OTHER, SELFPAY ==
--- NOTE | 2022-12-16 13:50 | RAD_ITS ---
STUDY: HYSTEROSALPINGOGRAM. REASON FOR EXAM: Female, 32 years old. INFERTILITY FLUOROSCOPY TIME (if supplied): ( 1 minute and 49 seconds ) minutes/seconds. 27.21 mGy. 2 images were obtained. TECHNIQUE: Hysterosalpingogram was performed by the seafood clerk. Imaging was provided. COMPARISON: None. FINDINGS: The uterus is unremarkable. Faint visualization of both fallopian tubes. No evidence of spill. RAD/Salpingogram IMPRESSION: No evidence of spill from the fallopian tubes. Electronically Signed: Myles Paredes MD at 14:47 EDT ,
== END | disposition home or self-care (01) ==
PROVIDERS: PCP Preventive Medicine Occupational Medicine; Referring Provider Obstetrics & Gynecology; Visit Provider Obstetrics & Gynecology
DX: N97.9 Female infertility, unspecified (principal)
CPT/HCPCS: 58340; 74740; Q9967

== ENCOUNTER 2024-04-29 00:11 | Outpatient (CLI) | payer OTHER, SELFPAY ==
[2024-04-29] VITALS (7 sets, daily range): BP systolic 97–103; BP diastolic 53–61; PULSE 78–95; RESP 18; TEMP 36.8; O2SAT 98
[2024-04-29 01:24] LABS: Hematocrit 31.3 % (37-47); Hemoglobin 10.2 g/dL (12.0-15.0); Mean Corp Hgb Conc 32.6 g/dL (32-36); Mean Corpuscular Hgb 28.7 pg (27.0-32.0); Mean Corpuscular Volume 88.2 fL (81-99); Mean Platelet Vol. 10.3 fl (6.2-12.0); Platelet Count 233 K/mm3 (150-450); RBC Distribution Width SD 55.9 fl (35.1-43.9); Red Blood Count 3.55 M/mm3 (4.2-5.4); White Blood Count 9.8 K/mm3 (4.4-11.0)
[2024-04-29 01:43] LABS: AST(SGOT) 12 U/L (15-37); Alanine Aminotransfer ALT/SGPT 14 U/L (13-56); Creatinine, Serum 0.66 mg/dL (0.55-1.02); EST Glomerular Filtration Rate 108 mL/min (>60); Est Glom Filt Rate - Afr Amer 131 mL/min (>60); Estimated Creatinine Clearance 112.48 ml/min; Protein, Urine (Random) < 6.0 mg/dL (<11.9); Protein:Creat Ratio 269 mg/g CRE (0-200); Uric Acid 3.5 mg/dL (2.6-6.0)
--- NOTE | 2024-04-30 20:57 | OB.TRI.NOTE ---
HPI - General General Date of Admission: 04/29/24 Date of Service: 04/29/24 Chief Complaint: r/o pre e HPI Narrative IKE LOPEZ, is a 33 F who presents with a BP that is a higher than her normal. Has had a mild headache. Good movement. No LOF No VB Maternal Data Information Final YELENA: 05/[birth year]/24 Gestational age: 35 PFSH PFS Medical History (Updated 04/30/24 @ 21:[address] Cheryl Baugh MD) Hemorrhoids Hemorrhoids Acid reflux Allergy/AdvReac Type Severity Reaction Status Date / Time No Known Allergies Allergy Verified 04/29/24 00:49 Surgical History History of hemorrhoidectomy History of colonoscopy History of wisdom tooth extraction History of laparoscopy History of Social History (Updated 09/19/19 @ 09:27 by Naomy SHEPARD, PA-C) Smoking Status: Never smoker second hand exposure: No alcohol intake: never substance use type: does not use caffeine: Yes what type of physical activity do you participate in: walking, running and weight training frequency: 3-4 times per week History 3 Elective abortions Hx Para 2 Spontaneous abortions Hx # Term Pregnancies Ectopic pregnancies Hx # Pregnancies Multiple births # of living children NST FHR Rate Baby A Baseline: 130 Variability:: Moderate Accelerations:: 15 x 15 Decelerations:: None NST Reactive:: Yes FHR Category:: Category I Uterine Activity:: none Assessment & Plan (1) Normotensive: (2) 35 weeks gestation of : (3) Mild headache: PLAN: Plan Normal labs. Follow up in office Tylenol for DYER
== END 2024-04-29 02:05 | disposition home or self-care (01) ==
LOC: WPOUT 00:16 → WP 00:17
PROVIDERS: PCP Preventive Medicine Occupational Medicine; Referring Provider Obstetrics & Gynecology; Visit Provider Obstetrics & Gynecology
DX: O26.893 Other specified pregnancy related conditions, third trimester (principal); R03.0 Elevated blood-pressure reading, without diagnosis of hypertension; O34.219 Maternal care for unspecified type scar from previous cesarean delivery; Z3A.35 35 weeks gestation of pregnancy

== ENCOUNTER 2024-05-26 09:17 | Inpatient (IN) | payer OTHER, SELFPAY ==
[2024-05-26] VITALS (15 sets, daily range): BP systolic 92–106; BP diastolic 48–68; PULSE 70–97; RESP 16–18; TEMP 36–36.6; O2SAT 97–100; BMI 31.1
[2024-05-26] MEDS: Lactated Ringers 1,000 ML 999 ML IV (09:55)
[2024-05-26] MEDS: Acetaminophen 500 MG Tablet 1000 MG PO ×3 (10:19→22:50)
[2024-05-26 10:31] LABS: Absolute Lymphocyte Count 1.09 X10^3/uL (0.83-4.51); Absolute Neutrophil Count 6.4 X10^3/uL (2.0-7.7); Basophil# 0.05 X10^3/uL; Basophil% 0.6 % (0-1); Eosinophil# 0.08 X10^3/uL; Eosinophils% 0.9 % (0-5); Hematocrit 33.4 % (37-47); Hemoglobin 11.2 g/dL (12.0-15.0); Lymphocyte # 1.09 X10^3/ul (0.83-4.51); Lymphocyte % 12.9 % (19-41); Mean Corp Hgb Conc 33.5 g/dL (32-36); Mean Corpuscular Hgb 29.5 pg (27.0-32.0); Mean Corpuscular Volume 87.9 fL (81-99); Mean Platelet Vol. 10.2 fl (6.2-12.0); Monocyte# 0.69 X10^3/uL; Monocyte% 8.2 % (0-10); NRBC Flagged by Analyzer 0 % (0-5); Neutrophil # 6.44 X10^3/uL (2.7-7.7); Neutrophil % 76.3 % (47-70); Platelet Count 208 K/mm3 (150-450); RBC Distribution Width CV 18.6 % (11.6-14.6); RBC Distribution Width SD 59.7 fl (35.1-43.9); White Blood Count 8.4 K/mm3 (4.4-11.0)
[2024-05-26] MEDS: Lactated Ringers 1,000 ML 150 ML IV (10:44)
[2024-05-26 11:19] LABS: Syphilis Antibodies Non-reactive
--- NOTE | 2024-05-26 11:53 | HP.PCM.OB_ITS ---
HPI - General General Date of Admission: 05/26/24 Date of Service: 05/26/24 Chief Complaint: repeat HPI Narrative IKE LOPEZ, is a 33 F who presents repeat Maternal Data Information Final YELENA: [birth year]/24 Gestational age: 39 PFSH PFSH Medical History Vaginal after Infertility Headache Hemorrhoids Hemorrhoids Acid reflux Home Medications ?Medication ?Instructions ?Recorded ?Last Taken ?Type aspirin 81 mg tablet,delayed 81 mg PO DAILY 05/26/24 05/25/24 History release (Adult Aspirin Regimen) ferrous sulfate 325 mg (65 mg 325 mg PO QODAY pregnanc y 05/26/24 05/25/24 History iron) tablet (Feosol) vits no.130-ferrous fum tab PO DAILY pregnanc y 05/26/24 05/25/24 History 27 mg iron-folic acid 800 mcg tablet ( Vitamin) Allergy/AdvReac Type Severity Reaction Status Date / Time No Known Allergies Allergy Verified 05/26/24 10:42 Family History no significant family his Surgical History History of hemorrhoidectomy History of colonoscopy History of wisdom tooth extraction History of laparoscopy History of Social History Smoking Status: Never smoker second hand exposure: No alcohol intake: never substance use type: does not use caffeine: Yes what type of physical activity do you participate in: walking, running and weight training frequency: 3-4 times per week History 3 Elective abortions Hx Para 2 Spontaneous abortions Hx # Term Pregnancies Ectopic pregnancies Hx # Pregnancies Multiple births # of living children NST FHR Rate Baby A Baseline: 140 ROS Constitutional Constitutional: Denies fatigue, fever(s) or malaise Eyes Eyes: Denies change in vision ENT HEENT: Denies dizziness or headache(s) Cardiovascular Cardiovascular: Denies chest pain, dyspnea or lightheadedness Respiratory/Chest Respiratory/Chest: Denies cough or dyspnea Gastrointestinal Gastrointestinal: Denies change in bowel habits Genitourinary Genitourinary: Denies burning urination or genital lesions Integumentary Integumentary: Denies rash Neurologic Neurologic: Denies confusion, dizziness, headache(s), numbness or weakness Vital Signs Vital Signs Vital Signs: 05/26/24 10:31 Temperature 97.9 F Temperature Source Temporal Pulse Rate 79 Respiratory Rate 16 Blood Pressure 106/68 Blood Pressure Mean 80 Blood Pressure Source Monitor Blood Pressure Position Semi-Fowlers Blood Pressure Location Left Arm Pulse Ox 100 Oxygen Delivery Method Room Air Weight Weight: 77.167 kg Body Mass Index (BMI) 31.1 Physical Exam Const alert and no apparent distress General Appearance: cooperative HEENT normocephalic Resp normal respiratory effort Cardio regular rate GI soft to palpation GI Narrative: gravid, nontender, appropriate for gestational age Extremity no calf tenderness General Extremity: edema Skin no wounds Rashes: No rashes noted Psych activity/motor behavior normal Labs Labs Labs: Blood Type A POSITIVE Antibody Screen NEGATIVE Hct 33.4 % (37-47) L Hgb 11.2 g/dL (12.0-15.0) L Syphilis Total Ab Non-reactive Rubella IgG Antibody 204.8 IU/mL Hep Bs Antigen Hepatitis C Ab (EIA) HIV 1&2 Antibody Nonreactive (Nonreactive) Glucose 1 Hr 50 gm 104 mg/dL (70-140) Gest Glucose Tolerance MG/DL Group B Strep DNA POSITIVE (Negative) H Rhogam given: No Assessment & Plan (1) History of : (2) 39 weeks gestation of : PLAN: Plan repeat
[2024-05-26] MEDS: Sodium Citrate/Citric Acid 30 ML UDC PO (11:57)
[2024-05-26] MEDS: Cefazolin 2 GM in Syringe IV (12:12)
--- NOTE | 2024-05-26 13:07 | EX.PCM.OBRPT ---
Assessment & Plan (1) S/P : Maternal Data Information Final YELENA: [birth year]/24 Gestational age: 39 Operative Report (OB) Cecarean Details Procedure Type: low transverse Date of Procedure: 05/26/24 Procedure Start Time: : Procedure Stop Time: 12: Time of Delivery: : Pre-Operative Diagnosis: Repeat Elective Post-Operative Diagnosis: Same as Pre-operative diagnosis Classification: Scheduled Type of Anesthesia: Spinal Antibiotic Given: Ancef 2 grams IV x1 Drain: Vasquez to straight drain Estimated Blood Loss: 800 cc Findings Description of surgery: Patient taken to the OR where spinal anesthesia and Vasquez were placed. She was prepped and draped in the normal sterile fashion. Spinal anesthesia was verified with an Allis clamp. A Pfannenstiel incision was made and carried down to the underlying fascia. The fascia was incised in the midline and extended laterally. The fascia was dissected from the muscle. The muscles divided in the midline. The peritoneum was entered bluntly and extended manually. A bladder blade was placed. A bladder flap was created. A low transverse incision was made and extended bluntly. The head was elevated to the incision. The shoulders delivered easily. The cried upon delivery. The cord was cut and clamped. The placenta was delivered with sravanthi traction. The uterus was exteriorized and cleared of all clot and debris. The incision was repaired with 1-0 Vicryl x 2. A figure of 8 was used to obtain hemostasis. The uterus was returned the abdomen, The gutter cleared of all clots. The peritoneum was closed with 2-0 Monocryl. The fascia was closed with 1-0 Vicryl. The subcutaneous tissue was reapproximated with 2-0 Monocryl. The skin was closed with 4-0. I performed the major parts of the procedure with the RFNA assisting with retraction and closing the skin. The sponge lap and needle count was correct x 2 Surgical findings: Normal uterus tubes and ovaries Presentation: Vertex Amniotic Membrane Rupture Type: Artificial Amniotic Fluid Description: Clear Placental Delivery Description: Expressed Placenta Disposition: [facility] Specimen collected: No Cord Vessel Description: 3 Vessels Cord Entanglement: None Infant A gender: Female (1 minute): 9 (5 minute): 9 Delayed Cord Clamping: Yes Junior Underwriter dramatic arts historian: Yes Network Infrastructure Architect: Naumoff,Lena J Tasks completed by first leveler: Opening & closing and Retracting Complications Complications: No
[2024-05-26] MEDS: Oxytocin 15 Units/NS 250ml 15 UNITS/250 ML IV.SOLN 83 UNITS IV (13:15)
[2024-05-26] MEDS: Ketorolac 30 MG/ML Syringe IV ×2 (14:06→19:53)
[2024-05-26] MEDS: Lactated Ringers 1,000 ML 100 ML IV (16:36)
[2024-05-26] MEDS: Ondansetron 4 MG/2 ML Vial IV (16:59)
[2024-05-26] MEDS: 0.9% Saline Lock 10 ML Syringe IV (19:54)
[2024-05-27 00:10] VITALS: BP 97/63; PULSE 70; RESP 15; TEMP 36.7; O2SAT 98
[2024-05-27] MEDS: Ketorolac 30 MG/ML Syringe IV ×2 (02:31→08:03)
[2024-05-27] MEDS: 0.9% Saline Lock 10 ML Syringe IV (02:31)
[2024-05-27] MEDS: SimETHICONE 80 MG Chewable Tablet PO (02:36)
[2024-05-27 04:50] VITALS: BP 96/53; PULSE 88; RESP 16; TEMP 36.4; O2SAT 97
[2024-05-27] MEDS: Acetaminophen 500 MG Tablet 1000 MG PO ×2 (04:58→10:56)
[2024-05-27 06:12] LABS: Hematocrit 34.1 % (37-47); Hemoglobin 11.1 g/dL (12.0-15.0); Mean Corp Hgb Conc 32.6 g/dL (32-36); Mean Corpuscular Hgb 29.6 pg (27.0-32.0); Mean Corpuscular Volume 90.9 fL (81-99); Mean Platelet Vol. 10.2 fl (6.2-12.0); Platelet Count 202 K/mm3 (150-450); RBC Distribution Width CV 18.6 % (11.6-14.6); RBC Distribution Width SD 61.2 fl (35.1-43.9); Red Blood Count 3.75 M/mm3 (4.2-5.4); White Blood Count 9.4 K/mm3 (4.4-11.0)
[2024-05-27 08:00] VITALS: BP 94/64; PULSE 75; RESP 16; TEMP 36.8
--- NOTE | 2024-05-27 08:44 | PN.OBGYN_ITS ---
Subjective Subjective Doing well. Ambulating and voiding without difficulty. Mild lochia. Breast feeding. Objective Data Objective Data Vital Signs: Vital Signs Temp Pulse Resp BP Pulse Ox O2 Del Method 98.2 F 75 16 94/64 97 Room Air 05/27/24 08:00 05/27/24 08:00 05/27/24 08:00 05/27/24 08:00 05/27/24 04:50 05/27/24 08:00 Oxygen Delivery Method Room Air Weight: 77.167 kg Body Mass Index (BMI) 31.1 Intake & Output: Intake and Output for Last 24 Hours 05/25/24 05/26/24 05/27/24 23:59 23:59 23:59 Intake Total 2610 / 2610 Output Total 1300 / 1600 800 / 800 Balance 1310 / 1010 -800 / -800 Lab / Micro Data 05/27/24 06:00 Labs: Laboratory Results - last 24 hr 05/26/24 09:55: WBC 8.4, RBC 3.80 L, Hgb 11.2 L, Hct 33.4 L, MCV 87.9, MCH 29.5, MCHC 33.5, RDW Std Deviation 59.7 H, RDW Coeff of Kevon 18.6 H, Plt Count 208, MPV 10.2, Immature Gran % (Auto) 1.100 H, Neut % (Auto) 76.3 H, Lymph % (Auto) 12.9 L, Kenedy % (Auto) 8.2, Eos % (Auto) 0.9, Baso % (Auto) 0.6, Absolute Neuts (auto) 6.4, Absolute Lymphs (auto) 1.09, Nucleated RBC % 0, Syphilis Total Ab Non- reactive, Blood Type A POSITIVE, Antibody Screen NEGATIVE 05/27/24 06:00: WBC 9.4, RBC 3.75 L, Hgb 11.1 L, Hct 34.1 L, MCV 90.9, MCH 29.6, MCHC 32.6, RDW Std Deviation 61.2 H, RDW Coeff of Kevon 18.6 H, Plt Count 202, MPV 10.2 ROS Constitutional Constitutional: Denies headache(s) Cardiovascular Cardiovascular: Denies chest pain or dyspnea Gastrointestinal Gastrointestinal: Denies nausea or vomiting Genitourinary Genitourinary: Denies dysuria Physical Exam Const alert, oriented x3 and no apparent distress General Appearance: cooperative and comfortable Eyes PERRL and EOMs intact bilaterally Resp normal respiratory effort GI soft to palpation and non-tender GI Narrative: soft, moderate distention, fundus firm, appropriately tender. Abdominal bandage clean dry and intact Uterus Palpation: uterus fundus firm ( below umbilicus) Extremity normal to inspection and full ROM Neuro oriented x3 and CN's II-XII intact bilaterally Psych mental status grossly normal Assessment & Plan (1) S/P : PLAN: Plan Discharge this afternoon
--- NOTE | 2024-05-27 08:45 | DS.PCM_ITS ---
Providers Date of Admission: 05/26/24 Date of Discharge: 05/27/24 Primary Care Physician: Dr. Luis Chambers DO Reason For Visit: REPEAT C SECTION Diagnosis Discharge Diagnosis (1) S/P : Status: Acute Code(s): Z98.891 - History of uterine scar from previous surgery Plan Discharge this afternoon Medications at Discharge Home Medications ferrous sulfate 325 mg (65 mg iron) tablet (Feosol) 325 mg PO QODAY 05/26/24 vits no.130-ferrous fum 27 mg iron-folic acid 800 mcg tablet ( Vitamin) tab PO DAILY 05/26/24 oxycodone 5 mg tablet 5 mg PO Q6H PRN PRN severe pain 7 days #20 TABLETS 05/27/24 Hospital Course Operations section Procedures None Summary of Care Provided Minutes Spent on Discharge: 20 Hospital Course: Scheduled repeat . Uncomplicated course Physical Exam Const alert General Appearance: cooperative GI GI Narrative: soft, moderate distention, fundus firm, appropriately tender. Abdominal bandage clean dry and intact Weight / BMI Weight Weight: 77.167 kg Body Mass Index (BMI) 31.1 ABG / Lab / Microbiology Data 05/27/24 06:00 Laboratory: Laboratory Results - last 24 hr 05/26/24 09:55: WBC 8.4, RBC 3.80 L, Hgb 11.2 L, Hct 33.4 L, MCV 87.9, MCH 29.5, MCHC 33.5, RDW Std Deviation 59.7 H, RDW Coeff of Kevon 18.6 H, Plt Count 208, MPV 10.2, Immature Gran % (Auto) 1.100 H, Neut % (Auto) 76.3 H, Lymph % (Auto) 12.9 L, [place] % (Auto) 8.2, Eos % (Auto) 0.9, Baso % (Auto) 0.6, Absolute Neuts (auto) 6.4, Absolute Lymphs (auto) 1.09, Nucleated RBC % 0, Syphilis Total Ab Non- reactive, Blood Type A POSITIVE, Antibody Screen NEGATIVE 05/27/24 06:00: WBC 9.4, RBC 3.75 L, Hgb 11.1 L, Hct 34.1 L, MCV 90.9, MCH 29.6, MCHC 32.6, RDW Std Deviation 61.2 H, RDW Coeff of Kevon 18.6 H, Plt Count 202, MPV 10.2 D/C Instructions Discharge Diet: No restrictions May resume sexual activity in: 4-6 weeks Lifting Restrictions: 20 pounds Additional Activity Instructions: Nothing in the vagina for 4-6 weeks. You may return to work/school in 6 weeks. Call your doctor if your incision/area has: Continuous Slow Oozing, Sudden Increased Bleeding, Increased Pain/ Swelling, Increased Redness and Foul Smelling Discharge Call your doctor if you observe: Fever of 101 or Higher and Using more than 1 pad per hour (for 2 hours) Suture Line Care: Avoid Pulling/Pushing and Avoid Pinching/Bending Cleanse incision/area with: Keep Dressing Clean & Dry DC O2, CPAP, BIPAP Needs Home O2 Discharge instructions: No Please Follow Up With: Nia Pretty MD When: Call to make an appointment for an incision check in 1-2 [phone]. You will need a post check in 6 weeks. Meaningful Use Info Meaningful Use Meaningful Use Diagnoses (Choose all that apply): None applicable Ischemic Stroke Statin Dosing Therapy Reference: STATIN DOSE THERAPY REFERENCE: * Patients > 75 years receive moderate or high dose statin therapy. * Patients 75 years or YOUNGER should receive HIGH intensity statin dose unless contraindicated. You will be required to document reason for non-treatment if statin daily dose does not meet guidelines. HIGH DOSE STATIN THERAPY DAILY Atorvastatin > than or = to 40 mg Rosuvastatin > than or = to 20 mg Amlodipine + Atorvastatin > than or = to 2.5/40 mg Ezetimibe + Simvastatin 10/80 mg Simvastatin 80mg Discharge Plan Admission Admit Date/Time: 05/26/24 09:17 Primary Reason for Your Visit: repeat Attending Provider: Cheryl Baugh Primary Care Provider: Luis Chambers Discharge Orders/Prescriptions Prescriptions: New oxycodone 5 MG tablet 5 mg PO Q6H PRN PRN (Reason: severe pain) 7 Days Qty: 20 0RF Continued Vitamin 27 mg iron- 800 mcg tablet PO DAILY ferrous sulfate [Feosol] 325 mg (65 mg iron) tablet 325 mg PO QODAY Discontinued aspirin [Adult Aspirin Regimen] 81 mg tablet,delayed release (DR/EC) 81 mg PO DAILY Referrals / Follow Up: Luis Chambers DO [Primary Care Provider] - Disposition Disposition (needs filled in before D/C Order can be placed): Home, Self Care
[2024-05-27 12:54] VITALS: BP 111/65; PULSE 71; RESP 16
[2024-05-27] MEDS: Ibuprofen 600 MG Tablet PO (13:24)
--- NOTE | 2024-05-31 14:23 | NURSING ---
Follow up questions asked at visit on 05/29 at 1330. Pt. doing well, just sore. Has been seen by ER/[facility] for vision changes and headaches, but that has since been resolved and pt. reports labs came back fine. Infant nursed well in office today. Family denies questions or concerns at this time.
== END 2024-05-27 13:35 | disposition home or self-care (01) | DRG 788 ==
PROVIDERS: Admitting Provider Obstetrics & Gynecology; PCP Preventive Medicine Occupational Medicine; Referring Provider Obstetrics & Gynecology; Visit Provider Obstetrics & Gynecology
PROC: 10D00Z1 Extraction of Products of Conception, Low, Open Approach (ICD-10-PCS; CPT 59514; principal; 2024-05-26 11:45)
DX: O34.219 Maternal care for unspecified type scar from previous cesarean delivery (principal); Z37.0 Single live birth; Z3A.39 39 weeks gestation of pregnancy
CPT/HCPCS: 59025; 59050; 85025; 85027; 86780; 86850; 86900; 86901; A4216; J2405

== ENCOUNTER 2024-05-28 20:09 | Outpatient (CLI) | payer OTHER, SELFPAY ==
[2024-05-28 20:28] VITALS: BP 113/65; PULSE 80; RESP 14; TEMP 37.1; O2SAT 99
[2024-05-28 20:32] VITALS: BMI 29.8
[2024-05-28 20:43] VITALS: BP 110/67; PULSE 73
[2024-05-28 20:58] VITALS: BP 118/71; PULSE 75
[2024-05-28 21:13] VITALS: BP 109/65; PULSE 84
[2024-05-28 21:24] LABS: AST(SGOT) 16 U/L (15-37); Alanine Aminotransfer ALT/SGPT 17 U/L (13-56); Creatinine, Serum 0.51 mg/dL (0.55-1.02); EST Glomerular Filtration Rate 144 mL/min (>60); Est Glom Filt Rate - Afr Amer 174 mL/min (>60); Estimated Creatinine Clearance 144.94 ml/min; Uric Acid 3.9 mg/dL (2.6-6.0)
[2024-05-28 21:25] LABS: Hematocrit 32.3 % (37-47); Hemoglobin 10.6 g/dL (12.0-15.0); Mean Corp Hgb Conc 32.8 g/dL (32-36); Mean Corpuscular Hgb 29.5 pg (27.0-32.0); Platelet Count 241 K/mm3 (150-450); RBC Distribution Width CV 18.7 % (11.6-14.6); RBC Distribution Width SD 62.1 fl (35.1-43.9); Red Blood Count 3.59 M/mm3 (4.2-5.4); White Blood Count 8.8 K/mm3 (4.4-11.0)
[2024-05-28 21:28] VITALS: BP 112/67; PULSE 80
--- NOTE | 2024-05-28 21:40 | OB.TRI.HP_ITS ---
HPI - General General Date of Admission: 05/28/24 Date of Service: 05/28/24 Chief Complaint: Swelling HPI Narrative IKE LOPEZ, is a 33 F who presents 2 days with swelling and blurred vision. Uncomplicated repeat on 05/26/24. Normal BP . Normal BP today. Normal PIH labs. Patient has been anxious and had not had much sleep. Did take a narcotic pain pill early today before the vision changes. Feeling better after normal labs, BP and reassurance Maternal Data Information Gestational age: delivered [facility] Medical History Vaginal after Infertility Headache Hemorrhoids Hemorrhoids Acid reflux Home Medications ?Medication ?Instructions ?Recorded ?Last Taken ?Type ferrous sulfate 325 mg (65 mg 325 mg PO QODAY pregnanc y 05/26/24 05/25/24 History iron) tablet (Feosol) vits no.130-ferrous fum 1 tab PO DAILY pregna ncy 05/26/24 05/25/24 History 27 mg iron-folic acid 800 mcg tablet ( Vitamin) oxycodone 5 mg tablet 5 mg PO Q6H PRN PRN severe p ain 7 05/27/24 Unknown Rx days #20 TABLETS Allergy/AdvReac Type Severity Reaction Status Date / Time No Known Allergies Allergy Verified 05/28/24 20:25 Surgical History History of hemorrhoidectomy History of colonoscopy History of wisdom tooth extraction History of laparoscopy History of Social History Smoking Status: Never smoker second hand exposure: No alcohol intake: never substance use type: does not use caffeine: Yes what type of physical activity do you participate in: walking, running and weight training frequency: 3-4 times per week History 3 Elective abortions Hx Para 3 Spontaneous abortions Hx # Term Pregnancies Ectopic pregnancies Hx # Pregnancies Multiple births # of living children Assessment & Plan (1) Swelling of both ankles: (2) S/P : PLAN: Plan Keep scheduled office appointment
== END 2024-05-28 21:45 | disposition home or self-care (01) ==
LOC: WPOUT 20:13 → WP 20:13
PROVIDERS: PCP Preventive Medicine Occupational Medicine; Visit Provider Obstetrics & Gynecology
DX: O99.893 Other specified diseases and conditions complicating puerperium (principal); M25.471 Effusion, right ankle; M25.472 Effusion, left ankle
CPT/HCPCS: 36415; 82565; 84450; 84460; 84550; 85027; 99221; G0378